=== PATIENT | female | born 1940 | race Caucasian/White ===

== ENCOUNTER → 2024-08-17 | Outpatient (CLI) | payer MEDICARE, BC, SELFPAY ==
[2024-08-17 17:11] LABS: Amphetamine/Methamp Scrn,U Negative (Negative); Barbiturate Screen,Urine Negative (Negative); Benzodiazepines Screen,Urine Positive (Negative); Benzoylecgonine Screen, Ur Negative (Negative); Fentanyl Screen,Urine Negative (Negative); Opiate Screen,Urine Positive (Negative); THC Screen,Urine Negative (Negative)
== END | disposition home or self-care (01) ==
LOC: SLDO 14:58
PROVIDERS: PCP Registered Nurse; Referring Provider Registered Nurse; Visit Provider Registered Nurse
DX: Z79.891 Long term (current) use of opiate analgesic (principal)
CPT/HCPCS: 80307

== ENCOUNTER → 2024-08-23 | Outpatient (CLI) | payer MEDICARE, BC, SELFPAY ==
[2024-08-23 11:17] LABS: Basophils # (Auto) 0.1 Thou/mm3 (0.0-0.2); Basophils % (Auto) 1 % (0-2.5); Eosinophils # (Auto) 0.2 Thou/mm3 (0.0-0.5); Eosinophils % (Auto) 3 % (0-10); Hemoglobin 11.7 g/dL (12.0-16.0); Immature Granulocytes % (Auto) 0 % (0-0); Immature Granulocytes Auto 0.01 Thou/mm3 (0.00-0.00); Lymphocytes # (Auto) 2.3 Thou/mm3 (1.0-4.8); Lymphocytes % (Auto) 35 % (10-50); Mean Corpuscular HGB Conc 33.4 g/dl (31.0-37.0); Mean Corpuscular Hemoglobin 33.6 pg (25.0-35.0); Mean Corpuscular Volume 101 fL (80-100); Monocytes # (Auto) 0.4 Thou/mm3 (0.0-0.8); Monocytes % (Auto) 6 % (0-12); Neutrophils # (Auto) 3.6 Thou/mm3 (1.8-7.7); Neutrophils % (Auto) 55 % (37-80); Nucleated Red Blood Cell % 0 /100 WBC (0); Platelet Count 355 Thou/mm3 (140-440); RDW Standard Deviation 47.8 fL (36.4-46.3); Red Blood Count 3.48 Miln/mm3 (4.00-5.20); White Blood Count 6.7 Thou/mm3 (3.6-11.0)
[2024-08-23 11:39] LABS: Vitamin B12 401 pg/mL (211-911)
[2024-08-23 11:42] LABS: Alanine Aminotransferase 7 U/L (10-49); Albumin, Serum 4.1 gm/dL (3.4-4.8); Albumin/Globulin Ratio 1.5 (1.2-2.2); Alkaline Phosphatase 62 U/L (46-116); Anion Gap 5 (7-16); Aspartate Amino Transferase 12 U/L (0-34); BUN/Creatinine Ratio 19 Ratio (12-20); Bilirubin,Total 0.3 mg/dL (0.3-1.2); Blood Urea Nitrogen 13 mg/dL (9-23); Calcium 9.3 mg/dL (8.3-10.6); Calcium (Corrected) 9.3 mg/dL (8.5-10.1); Carbon Dioxide 26.5 mMol/L (20.0-31.0); Cardiac Risk Estimate 2.4 RATIO (3.7-5.6); Chloride 104 mMol/L (98-107); Cholesterol 210 mg/dL (132-200); Creatinine (Component) 0.7 mg/dL (0.6-1.3); Free T4 (Free Thyroxine) 1.11 ng/dL (0.89-1.76); Globulin 2.8 gm/dL (2.3-3.5); Glucose 97 mg/dL (74-106); HDL Cholesterol 87 mg/dL (40-60); LDL Cholesterol,Calculated 92 mg/dL (0-130); Osmolality,Calculated 270 (275-295); Potassium 4.2 mMol/L (3.4-5.1); Sodium 135 mMol/L (136-145); Thyroid Stimulating Hormone 0.27 uIU/mL (0.55-4.78); Total Protein 6.9 gm/dL (5.7-8.2); Triglycerides 157 mg/dL (30-150); eGFR > 60 See Note
== END | disposition home or self-care (01) ==
LOC: COPL 09:48
PROVIDERS: PCP Family Medicine; Referring Provider Registered Nurse; Visit Provider Registered Nurse
DX: I10 Essential (primary) hypertension (principal); E03.9 Hypothyroidism, unspecified; J44.9 Chronic obstructive pulmonary disease, unspecified; R79.89 Other specified abnormal findings of blood chemistry
CPT/HCPCS: 36415; 80053; 80061; 81001; 82607; 84439; 84443; 85025

== ENCOUNTER 2025-03-23 13:43 | Inpatient (IN) | payer MEDICARE, BC, SELFPAY ==
[2025-03-23] VITALS (10 sets, daily range): BP systolic 134–150; BP diastolic 46–78; PULSE 66–82; RESP 12–20; TEMP 36.3–37.9; O2SAT 94–100; BMI 13.6
--- NOTE | 2025-03-23 13:58 | XR_ITS ---
Examination: CT brain head without contrast. 2-D sagittal coronal reconstructions Date and time of exam:March 23, 2025 1416 hours INDICATIONS: Altered mental status beginning today CTDI: vol (mGy):43.7 DLP: (mGycm):895 Technique: Multiple CT axial sections of the brain have been obtained, 5 mm slice thickness. Contrast has not been administered. 2-D sagittal, coronal reconstructions have been obtained Low dose protocols were performed. One or more of the following dose reduction techniques were used; automated exposure control, adjustment of the mA and/or KV according to patient size, use of iterative reconstruction technique. Findings: No significant ventricular enlargement. Intra-axial or extra-axial hemorrhage density is not seen. No mass effect or midline shift Basal cisterns are not remarkable. Fourth ventricle is midline. Cranial vault intact. Benign left temporal lobe tip subarachnoid cyst Impression: Negative for acute hemorrhage, mass effect or midline shift Advise clinical correlation and follow-up accordingly
--- NOTE | 2025-03-23 13:58 | EKG_ITS ---
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
[2025-03-23] MEDS: SODIUM CHLORIDE 0.9% 1000 ML 1,000 ML IV (14:05)
[2025-03-23 14:13] LABS: Collection Type, Urine Catheter
[2025-03-23 14:31] LABS: Bacteria,Urine 1+; Bilirubin,Urine Negative (Negative); Blood,Urine 2+ (Negative); Color,Urine Lt-Yellow (Lt Yel-Yel); Glucose, Urine Negative (Negative); Ketones,Urine 1+ (Negative); Leukocyte Esterase,Urine Negative (Negative); Nitrite,Urine Positive (Negative); PH,Urine 5.5 (5.0-7.0); Protein,Urine Negative (Neg - Trace); RBC,Urine 1 /hpf (0-3); Specific Gravity,Urine 1.012 (1.001-1.035); Squamous Epithelial Cell,Urine < 1 /hpf (0-5); Urobilinogen,Urine Negative mg/dL (0.0-1.0); WBC,Urine 5 /hpf (0-5)
[2025-03-23] MEDS: cefTRIAXone 2 GM in SODIUM CHLORIDE 0.9% (Popper) 50 ML IV (14:44)
[2025-03-23 14:45] LABS: Lactate (Lactic Acid) 0.8 mMol/L (0.4-2.0)
[2025-03-23 14:46] LABS: Basophils # (Auto) 0.0 Thou/mm3 (0.0-0.2); Basophils % (Auto) 0 % (0-2.5); Eosinophils # (Auto) 0.0 Thou/mm3 (0.0-0.5); Eosinophils % (Auto) 0 % (0-10); Hematocrit 35.1 % (36.0-46.0); Hemoglobin 12.0 g/dL (12.0-16.0); Immature Granulocytes Auto 0.10 Thou/mm3 (0.00-0.00); Lymphocytes # (Auto) 0.7 Thou/mm3 (1.0-4.8); Lymphocytes % (Auto) 4 % (10-50); Mean Corpuscular HGB Conc 34.2 g/dl (31.0-37.0); Mean Corpuscular Hemoglobin 33.5 pg (25.0-35.0); Mean Corpuscular Volume 98 fL (80-100); Monocytes # (Auto) 0.7 Thou/mm3 (0.0-0.8); Monocytes % (Auto) 4 % (0-12); Neutrophils # (Auto) 16.0 Thou/mm3 (1.8-7.7); Neutrophils % (Auto) 91 % (37-80); Nucleated Red Blood Cell # 0.00 Thou/mm3 (0.00-0.00); Nucleated Red Blood Cell % 0 /100 WBC (0); Platelet Count 224 Thou/mm3 (140-440); RDW Standard Deviation 45.2 fL (36.4-46.3); Red Blood Count 3.58 Miln/mm3 (4.00-5.20); White Blood Count 17.5 Thou/mm3 (3.6-11.0)
[2025-03-23 14:46] LABS: Base Excess -2 (-3-3); HCO3 22 mEq/L (20-26); Inspired O2, VO2 Liters 2 L/min; O2 Saturation 99 % (91-98); PCO2 33 mmHg (32.0-48.0); PO2 98 mmHg (83-108); pH, Arterial 7.43 (7.35-7.45)
[2025-03-23 14:48] LABS: Allen Test Performed/OK; Puncture Site Right Radial
[2025-03-23 14:48] LABS: Clarity,Urine Hazy (Clear/Hazy); Culture Indicated,Urine Yes
[2025-03-23 14:54] LABS: Amphetamine/Methamp Scrn,U Negative (Negative); Barbiturate Screen,Urine Negative (Negative); Benzodiazepines Screen,Urine Positive (Negative); Benzoylecgonine Screen, Ur Negative (Negative); Fentanyl Screen,Urine Negative (Negative); Opiate Screen,Urine Positive (Negative); THC Screen,Urine Negative (Negative)
[2025-03-23 14:59] LABS: INR 0.9 (0.9-1.3); Prothrombin Time 10.3 Seconds (9.0-12.2)
[2025-03-23 15:13] LABS: Ammonia < 10 uMol/L (11-32)
--- NOTE | 2025-03-23 15:20 | PD.EDAMS ---
Altered Mental Status RME/HPI General Chief Complaint: Altered Mental Status Stated Complaint: ALTERED Time Seen by Provider: 03/23/25 13:51 Arrival date/time: 03/23/25 13:43 Limitations: no limitations RME / HPI RME / HPI narrative: 84 year old female with history of hypertension presents to the ED BIBA from home for evaluation of altered mental status beginning yesterday. Per medics, on scene described to be less alert than normal accompanied by decreased oral intake. In the ED, patient has no specific complaints. There is no focal weakness and the patient answers questions appropriately. No recent illness, fevers, chills, chest pain, cough, shortness of breath, abdominal pain, vomiting, change in stool or urinary habits. Related Data Home Medications ?Medication ?Instructions ?Recorded ?Confirmed amlodipine 10 mg tablet 10 mg PO QDAY 03/23/25 03/23/25 conjugated estrogens 0.625 mg 0.625 mg PO QDAY 03/23/25 03/23/25 tablet (Premarin) diazepam 10 mg tablet 10 mg PO QDAY 03/23/25 03/23/25 hydrocodone 10 mg-acetaminophen 1 tab PO TID PRN back pain 03/23/25 03/23/25 325 mg tablet thyroid (pork) 60 mg tablet 60 mg PO QDAY 03/23/25 03/23/25 ([place] Thyroid) Previous Rx's ?Medication ?Instructions ?Recorded lisinopril 20 mg tablet 20 mg PO QDAY #30 tabs 10/31/16 Allergies Allergy/AdvReac Type Severity Reaction Status Date / Time aspirin Allergy Intermediate GI UPSET Verified 03/23/25 22:46 Review of Systems Review of Systems Systems Reviewed: All systems reviewed, normal except as documented Past Medical History Past Medical History CARDIAC: Positive Hypertension; Negative Congestive Heart Failure RESPIRATORY: Positive Chronic Obstructive Pulmonary Disease (COPD) GENITOURINARY: Negative Renal Disease ENDOCRINE: Negative Diabetes Mellitus Type 1 or Diabetes Mellitus Type 2 Social History SMOKING STATUS: Current every day smoker ED Exam General Limitations: Present no limitations General appearance: Present alert and other (frail and thin, oriented x2, chronically ill appearing) Head Head exam: Present atraumatic Eye Eye exam: Present normal appearance, PERRL and EOMI ENT ENT exam: Present normal exam, normal oropharynx and mucous membranes moist Neck Neck exam: Present normal inspection, full ROM and trachea midline Chest Chest inspection: Present normal inspection and symmetric chest wall rise Respiratory Respiratory exam: Present normal lung sounds bilaterally Cardiovascular Cardiovascular exam: Present regular rate, normal rhythm and normal heart sounds Abdominal Exam Abdominal exam: Present soft and hypoactive bowel sounds; Absent distention, tenderness, guarding, rebound, rigidity or mass External exam: Present other (Smells of strong urine consistent with UTI) Extremities Exam Extremities exam: Present normal inspection and full ROM Back Exam Back exam: Present normal inspection and full ROM Neurological Exam Neurological exam: Present alert, CN II-XII intact and other (Oriented x2, 4+/5 strength of the upper and lower extremities, generalized weakness ) Psychiatric Psychiatric exam: Present normal affect and normal mood Skin Skin exam: Present warm, dry, intact and normal color Course Quality Measures none Orders Category Date Time Status Bedside Blood Glucose NOW Care 03/23/25 13:58 Active Bedside COVID-19 Antigen Test NOW Care 03/23/25 18:56 Active Bedside Influenza A&B Antigen Test NOW Care 03/23/25 18:56 Completed COVID-19 Screening Questionnaire NOW Care 03/23/25 19:39 Active COVID-19 Screening Questionnaire NOW Care 03/23/25 20:[address] Screening NOW Care 03/23/25 17:37 Active Greeting Card Maker NOW Care 03/23/25 13:58 Active Continuous Pulse Oximetry NOW Care 03/23/25 13:58 Completed Decision to Admit X1 Care 03/23/25 19:39 Completed Decision to Admit X1 Care 03/23/25 20:54 Completed EKG (ED ONLY) *Do not use* NOW Care 03/23/25 13:58 Completed In and Out Catheter X1 Care 03/23/25 13:58 Completed In and Out Catheter X1 Care 03/23/25 14:00 Completed Insert IV NOW Care 03/23/25 13:58 Completed NPO NOW Care 03/23/25 13:58 Active Referral Physical Therapy Stat Cons 03/23/25 20:[address] abdomen pelvis w con Stat Exams 03/23/25 17:[address] chest wo con Stat Exams 03/23/25 17:[address] head/brain wo con Stat Exams 03/23/25 13:58 Completed CXRP [XR chest 1V portable] Stat Exams 03/23/25 15:58 Completed EKG (ED Only) Stat Exams 03/23/25 13:58 Draft XR shoulder RT 1V Stat Exams 03/23/25 20:54 Completed Acetaminophen Stat Lab 03/23/25 14:35 Completed Alcohol, Blood Medical Stat Lab 03/23/25 14:35 Completed Ammonia Stat Lab 03/23/25 14:35 Completed Arterial Blood Gas Stat Lab 03/23/25 14:41 Completed Blood Culture (Lab) Stat Lab 03/23/25 14:40 Received CBC Stat Lab 03/23/25 14:35 Completed Comprehensive Metabolic Panel Stat Lab 03/23/25 14:35 Completed Drug Screen,Urine Stat Lab 03/23/25 11:09 Completed Free T3 Stat Lab 03/23/25 14:40 Completed Free T4 (Free Thyroxine) Stat Lab 03/23/25 14:40 Completed Lactic Acid [Lactate (Lactic Acid)] Stat Lab 03/23/25 14:35 Completed Magnesium Stat Lab 03/23/25 14:35 Completed Prothrombin Time with INR Stat Lab 03/23/25 14:35 Completed Salicylate Stat Lab 03/23/25 14:35 Completed Thyroid Stimulating Hormone Stat Lab 03/23/25 14:35 Completed Troponin I Stat Lab 03/23/25 14:35 Completed Urinalysis, C/S if Indicated Stat Lab 03/23/25 11:09 Completed Urine Culture Stat Lab 03/23/25 11:09 Received Azithromycin Inj [Zithromax Inj] 500 mg Med 03/23/25 18:55 Discontinued Sodium Chloride 0.9% 250 ml [Ns] 250 ml IV X1 Ringers Lactated 1000 ml [Lactated Ringers] 1,000 ml Med 03/23/25 18:57 Discontinued IV 500 mls/hr Sodium Chloride 0.9% 1000 ml [Ns] 1,000 ml Med 03/23/25 13:58 Discontinued IV 1,000 mls/hr cefTRIAXone [Rocephin] 2 gm Med 03/23/25 14:01 Discontinued SODIUM CHLORIDE 0.9% (Popper) [Ns 0.9% (P)] 50 ml IV X1 Oxygen Delivery NOW RT 03/23/25 13:58 Active Vital Signs Vital signs: Vital Signs Temperature 99.4 F 03/23/25 13:50 Pulse Rate 79 03/23/25 13:50 Respiratory Rate 16 03/23/25 13:50 Blood Pressure 134/78 H 03/23/25 13:50 Pulse Oximetry (%) 99 03/23/25 13:50 Oxygen Delivery Method Room Air 03/23/25 13:50 Pulse ox is 99% on room air which is adequate. Altered Mental Status MDM Narrative MDM Narrative:: IShanice, glendy scribing for and in the presence of Dr. Harris. I spoke with hospitalist team C regarding admission. They are requesting CT abdomen and pelvis w contrast prior to accepting for admission. 1800: Care signed out to Dr. Mitchell pending CT and final disposition. Patient data External records reviewed:: EMS form Clinical information provided by:: patient, EMS and spouse Social determinants that could affect healthcare access:: none Patient has the following chronic illnesses:: HTN How is presenting disease/condition affected by chronic disease/condition?: exacerbated by Evaluation data The following diagnostics were reviewed and interpreted by me:: lab results, radiology exam(s) and EKG tracing(s) (03/23/2025 @ 14:31 NSR with occasional PVCs, rate 72, no acute ischemic changes, no STEMI. ) Lab and/or radiology exams considered but not ordered:: None Interpretation Summary: Ordering Physician: Darion Harris MD Date of Service: 03/23/25 Procedure(s): CT head/brain wo con Accession Number(s): [id number] cc: Darion Harris MD; Dc Villegas MD; Jenni Gallardo MD~ Examination: CT brain head without contrast. 2-D sagittal coronal reconstructions Date and time of exam:March 23, 2025 1416 hours INDICATIONS: Altered mental status beginning today CTDI: vol (mGy):43.7 DLP: (mGycm):895 Technique: Multiple CT axial sections of the brain have been obtained, 5 mm slice thickness. Contrast has not been administered. 2-D sagittal, coronal reconstructions have been obtained Low dose protocols were performed. One or more of the following dose reduction techniques were used; automated exposure control, adjustment of the mA and/or KV according to patient size, use of iterative reconstruction technique. Findings: No significant ventricular enlargement. Intra-axial or extra-axial hemorrhage density is not seen. No mass effect or midline shift Basal cisterns are not remarkable. Fourth ventricle is midline. Cranial vault intact. Benign left temporal lobe tip subarachnoid cyst Impression: Negative for acute hemorrhage, mass effect or midline shift Advise clinical correlation and follow-up accordingly Dictated By: Dc Villegas MD Signed By: <Electronically signed by Dc Villegas MD in OV> 03/23/25 1502 Medications / Prescriptions Medications or Prescriptions considered but not ordered:: None Medication administrations:: Medication Administration History Acetaminophen (Acetaminophen 325 Mg Tablet) 650 mg PO Q6H PRN PRN Reason: PAIN SCALE 1-3 (mild Stop: 04/22/25 20:54 Acetaminophen (Acetaminophen 325 Mg Tablet) 650 mg PO Q6H PRN PRN Reason: Fever >100.4 Stop: 04/22/25 20:54 Hydrocodone Bitart/Acetaminophen (Hydrocodone/Apap 325 Tab) 1 tab PO Q4HR PRN PRN Reason: PAIN SCALE 7-10 (Severe Stop: 03/28/25 20:54 Last Admin: 03/23/25 23:03 Dose: 1 tab Documented By: BREANNE Albuterol/Ipratropium (Albuterol/Ipratropium (Duoneb) Rt Pearl 3 Ml Nebu) 3 ml INH Q6HRRT PRN PRN Reason: Wheezing Stop: 04/22/25 20:54 Amlodipine Besylate (Amlodipine Besylate 5 Mg Tablet) 10 mg PO QDAY BRENDA Stop: 04/23/25 08:59 Diazepam (Diazepam 5 Mg Tablet) 10 mg PO DAILY BRENDA Stop: 03/29/25 08:59 Heparin Sodium (Porcine) (Heparin Sod Inj 5000 Unit/Ml Vial) 5,000 unit SC BID BRENDA Stop: 04/06/25 20:59 Last Admin: 03/23/25 23:02 Dose: 5,000 unit Documented By: BREANNE Co-signed By: DENISE Ceftriaxone Sodium/Dextrose (Rocephin/D5w 1gm Iv Premix) 1 gm in 50 mls @ 100 mls/hr IV QDAY BRENDA Stop: 03/31/25 08:59 Azithromycin 250 mg/ Sodium (Chloride) 250 mls @ 250 mls/hr IV QDAY BRENDA Stop: 04/01/25 08:59 Sodium Chloride (Ns) 1,000 mls @ 30 mls/hr IV .Q24H BRENDA Stop: 04/22/25 20:59 Last Admin: 03/23/25 23:03 Dose: 30 mls/hr Documented By: BREANNE Multivitamins (Multivitamins Tablet) 1 tab PO QDAY BRENDA Stop: 04/23/25 08:59 Ondansetron HCl (Ondansetron Inj 2 Mg/Ml Inj 2 Ml) 4 mg IVP Q6H PRN; Protocol PRN Reason: NAUSEA OR VOMITING Stop: 04/22/25 20:54 Oxycodone/Acetaminophen (Oxycodone/Apap 5/325 Tablet) 1 tab PO Q6H PRN PRN Reason: PAIN SCALE 4-6 (Moderate Stop: 03/28/25 20:54 Pantoprazole Sodium (Pantoprazole Inj 40 Mg Vial) 40 mg IVP QDAY [facility] Stop: 04/22/25 20:59 Last Admin: 03/23/25 23:02 Dose: 40 mg Documented By: BREANNE Thiamine HCl (Thiamine 100 Mg Tablet) 100 mg PO QDAY [facility] Stop: 04/23/25 08:59 Thyroid (Thyroid 30 Mg Tablet) 60 mg PO QDAY [facility] Stop: 04/23/25 08:59 Discontinued Medications Amlodipine Besylate (Amlodipine Besylate 5 Mg Tablet) 5 mg PO X1 ONE Stop: 03/23/25 21:03 Last Admin: 03/23/25 23:03 Dose: 5 mg Documented By: BREANNE Sodium Chloride (Ns) 1,000 mls @ 1,000 mls/hr IV .Q1H ONE Stop: 03/23/25 14:57 Last Infusion: 03/23/25 17:00 Dose: Infused Documented By: Admin: 03/23/25 14:05 Dose: 1,000 mls/hr Documented By: REINA Ceftriaxone Sodium 2 gm/ (Sodium Chloride) 50 mls @ 100 mls/hr IV X1 ONE Stop: 03/23/25 14:30 Last Infusion: 03/23/25 15:14 Dose: Infused Documented By: Admin: 03/23/25 14:44 Dose: 100 mls/hr Documented By: REINA Azithromycin 500 mg/ Sodium (Chloride) 250 mls @ 250 mls/hr IV X1 ONE Stop: 03/23/25 19:54 Last Infusion: 03/23/25 20:36 Dose: Infused Documented By: Admin: 03/23/25 19:07 Dose: 250 mls/hr Documented By: GISELLA Lactated Ringer's (Lactated Ringers) 1,000 mls @ 500 mls/hr IV .Q2H ONE Stop: 09/04/25 20:56 Last Infusion: 03/23/25 21:48 Dose: Infused Documented By: Admin: 03/23/25 19:08 Dose: 500 mls/hr Documented By: GISELLA See above Consultations Consultation(s) initiated? (list below): No Diagnosis Most likely diagnosis given after review of the tests above:: Altered mental status Admission Indicated Admission indicated?: not indicated Explain why admission is indicated or not indicated:: Signed out pending final disposition. Admission Request Was there a request for admission?: No Disposition Plan Disposition Plan: other (specify) (Signed out to Dr. Mitchell ) Critical Care Time Critical Care Time Critical Care Time: No Discharge Plan Plan Patient Disposition: Admit Acute Care w/in Hospital Problem List Clinical Impression: AMS (altered mental status), Dehydration, UTI (urinary tract infection), Pneumonia
[2025-03-23 15:33] LABS: Acetaminophen < 2.0 mcg/mL (10.0-20.0); Alanine Aminotransferase 7 U/L (10-49); Albumin, Serum 3.9 gm/dL (3.4-4.8); Albumin/Globulin Ratio 1.7 (1.2-2.2); Alcohol, Blood Medical < 3.0 mg/dL (0-10.0); Alkaline Phosphatase 55 U/L (46-116); Anion Gap 12 (7-16); Aspartate Amino Transferase 14 U/L (0-34); BUN/Creatinine Ratio 11 Ratio (12-20); Bilirubin,Total 0.4 mg/dL (0.3-1.2); Blood Urea Nitrogen 8 mg/dL (9-23); Calcium 9.3 mg/dL (8.3-10.6); Calcium (Corrected) 9.4 mg/dL (8.5-10.1); Carbon Dioxide 22.3 mMol/L (20.0-31.0); Chloride 104 mMol/L (98-107); Creatinine (Component) 0.7 mg/dL (0.6-1.3); Globulin 2.3 gm/dL (2.3-3.5); Glucose 119 mg/dL (74-106); Magnesium 1.6 mg/dL (1.6-2.6); Osmolality,Calculated 274 (275-295); Potassium 3.6 mMol/L (3.4-5.1); Salicylate < 3.0 mg/dL; Sodium 138 mMol/L (136-145); Thyroid Stimulating Hormone 0.12 uIU/mL (0.55-4.78); Total Protein 6.2 gm/dL (5.7-8.2); Troponin I < 0.020 ng/mL (0.0-0.045); eGFR > 60 See Note
--- NOTE | 2025-03-23 15:58 | XR_ITS ---
Examination: AP chest single view Technique: AP portable upright chest single view Date and time: March 23, 2025, 1623 hrs., Comparison June 01, 2023. Indications: Coughing chest pain beginning today. Findings: Moderate hyperexpansion. Early pneumonia both bases. Normal heart size. Impression: COPD Early pneumonia both bases
--- NOTE | 2025-03-23 17:36 | XR_ITS ---
Examination: CT abdomen with intravenous contrast CT pelvis with intravenous contrast 2-D coronal reconstructions 2-D sagittal reconstructions Date and time of exam:March 23, 2025, 1841 hrs. Indications: Abdominal pain fever generalized weakness today. CTDI: vol (mGy) 3.76 DLP: (mGycm) 186 Technique: Multiple axial sections of the abdomen and pelvis have been obtained. 64 slice high-resolution scanner used. 3 mm axial sections have been obtained, post intravenous injection 60 cc [id number] 2-D sagittal, coronal reconstructions obtained. Low dose protocols were performed. One or more of the following dose reduction techniques were used; automated exposure control, adjustment of the mA and/or KV according to patient size, use of iterative reconstruction technique. Findings: Please see the CT chest report 19 mm enhancing lesion upper right lobe the liver, axial image 24 Hepatomegaly 18 cm No biliary tract dilatation. Spleen is not enlarged No pancreatic mass No gallstones Heavy abdominal aortic calcification No renal or ureteral calculi, no hydronephrosis Left kidney extrarenal pelvis No bowel obstruction. Colonic diverticulosis, no diverticulitis Urinary bladder intact No pericecal inflammatory change. Advanced degenerative disc disease L4-L5 Impression: Hepatomegaly, 18 cm 19 mm enhancing lesion upper right lobe liver, recommend elective MRI abdomen liver follow-up pre and postcontrast No renal or ureteral calculi. Colonic diverticulosis, no diverticulitis Advanced degenerative disc disease L4-L5.
--- NOTE | 2025-03-23 17:37 | XR_ITS ---
Examination: CT chest, without intravenous contrast. Sagittal and coronal 2-D reconstructions. Exam date and time: March 23, 2025, 1838 hrs. Indications: Chest pain shortness of breath fever coughing today CTDI:vol (mGy) 4.78 DLP: (mGycm) 173. Technique: Multiple 3.0 mm axial sections of the chest to been obtained. Bone and lung density settings are obtained. Sagittal and coronal 2-D reconstructions have been obtained. Low dose protocols were performed. One or more of the following dose reduction techniques were used; automated exposure control, adjustment of the mA and/or KV according to patient size, use of iterative reconstruction technique. Findings: Heavy thoracic aortic calcification no thoracic aortic aneurysmal dilatation. Pulmonary artery segments are not enlarged. Significant hyperexpansion. No paratracheal tracheobronchial or bronchopulmonary adenopathy. COPD with multiple areas of airspace destruction Extensive probable pleural scarring at the right apex. Prominent central pulmonary arteries especially right pulmonary artery Pneumonia at both lung bases 4 mm pulmonary nodule right lower lobe No visualized liver or splenic lesion Kidneys partially visualized no hydronephrosis No pancreatic mass. Prominent osteopenia with moderate chronic osteoporotic compression T9 Impression: COPD with prominent hyperexpansion Significant probable scarring at the right apex, follow-up chest imaging in 3 months recommended. Pneumonia both bases. 4 mm pulmonary nodule right lower lobe Severe osteopenia with moderate chronic compressions T9 vertebral body
--- NOTE | 2025-03-23 18:19 | PD.RESEVENT ---
Documentation for date of: 03/23/25 Event Note Event Note: IM hospitalist team received call from ED attending Dr. Doty at 5:45 PM regarding admission for leukocytosis in the setting of severe malnutrition and failure to thrive. Patient's urinalysis was fairly unremarkable and chest x-ray showed a hyperinflated COPD picture, relatively clear. No signs of consolidation. Given no obvious source of leukocytosis, IM hospitalist team has requested ED for a CT abdomen pelvis for further evaluation. ED to call back for admission when CT abdomen pelvis becomes available. Will re-evaluate. Plan of care discussed with attending Dr Stringer, - Santos Villarreal M.D. PGY3
--- NOTE | 2025-03-23 18:23 | PD.EDADDENDU ---
Emergency Room Addendum <Muna Chow - Last Filed: 03/23/25 20:17> Addendum Narrative: I took over the care from Dr. Harris at 6 PM on 03/23/2025, see his notes for complete H&P and ED course. I reviewed all diagnostic test results. My review of the CT chest report is: - COPD with prominent hyperexpansion - Significant probable scarring at the right apex - Pneumonia both bases. - 4 mm pulmonary nodule right lower lobe - Severe osteopenia with moderate chronic compressions T9 vertebral body My review of the CT abdomen pelvis report is: - Hepatomegaly, 18 cm - 19 mm enhancing lesion upper right lobe liver - Colonic diverticulosis, no diverticulitis - Advanced degenerative disc disease L4-L5 At this point, diagnoses include: - AMS - Dehydration - UTI - Pneumonia Treatment here from me included: - Azithromycin I discussed the case with our hospitalist. About the presentation and exam and diagnostics and treatments here. And need of further care in the hospital. Will accept the patient. Zhang Mitchell MD <Zhang Mitchell MD - Last Filed: 03/26/25 09:41> Addendum Narrative: I took over the care from Dr. Harris at 6 PM on 03/23/2025, see his notes for complete H&P and ED course. At this point, diagnoses include: - AMS - Dehydration - UTI - Pneumonia I discussed the case with our hospitalist. About the presentation and exam and diagnostics and treatments here. And need of further care in the hospital. Will accept the patient. Zhang Mitchell MD
[2025-03-23] MEDS: AZITHROMYCIN INJ 500 MG in SODIUM CHLORIDE 0.9% 250 ML 250 ML 250 MG IV (19:07)
[2025-03-23] MEDS: RINGERS LACTATED 1000 ML 1,000 ML 500 ML IV (19:08)
[2025-03-23 19:56] LABS: Free T3 2.2 pg/mL (2.3-4.2); Free T4 (Free Thyroxine) 0.98 ng/dL (0.89-1.76)
--- NOTE | 2025-03-23 20:54 | XR_ITS ---
Examination: Right shoulder single view Technique one AP internal rotation left shoulder single view Date and time: March 23, 2025, 2127 hrs. Indications: Right shoulder pain today. Findings: Limited study. Obliteration of the space between the acromium and humeral head seen with full-thickness rotator cuff tear. No fracture Impression: Obliteration of the space between the acromium and humeral head seen with full-thickness rotator cuff tear.
--- NOTE | 2025-03-23 21:04 | ESHP_ITS ---
Documentation for date of: 03/23/25 [facility] History of Present Illness History of present illness: This is a 84-year-old female with PMHx of hypothyroidism, HTN, COPD, chronic back pain, presenting to the ED with acute altered mental status. Currently she resides with her son who is a bedside during encounter. On the morning of admission, she was found lying in bed, with her legs extended on wheelchair. Granddaughter noted that she was slightly confused, difficult to arouse, and not making sense when he she asked questions. Patient herself denies any changes in mentation, she is alert oriented x 3 at the time of the encounter, denied any current complaints other than chronic back pain. Denies headaches, fever, chills, fall or trauma, syncope or presyncope, chest pain, shortness of breath, palpitations, abdominal pain, N/V/D/C, dysuria, urinary urgency or frequency, or hematuria. Per son, she had been losing weight gradually over the last several weeks, more than 4 lbs, although there is no reported loss of appetite. Additionally, she complained of right arm pain, unable to lift her arm secondary to pain which is also chronic. Past Medical History: * Hypothyroidism, HTN, COPD, chronic back pain. Past Surgical History: * None. Medications: * PREMARIN 0.625 mg daily, NORCO as needed for pain, DIAZEPAM 10 mg daily PRN for leg pain, ARMOUR THYROID 60 mg daily, AMLODIPINE 10 mg daily. Allergies: * ASPIRIN, GI upset. Family History: * None relevant. Social History: * Chronic smoker, more than [id number]. Occasional alcohol drink. Denies drug or marijuana use. ED Course: * Afebrile, HR 79, BP 134/78, satting 96% on room air. * CBC showed WBC 17.5, Hgb 12.0, PLT 224. * Normal coag studies. * ABG was normal with pH 7.43, pCO2 33, bicarb 22, PaO2 98. * CHEM panel remarkable for TSH 0.12, free T4.98. * UA showed 1+ bacteria, positive nitrite, 2+ blood, 1+ KETONE. * U tox positive for opiate and benzo. * EKG shows sinus rhythm without acute ST changes. * Head CT was negative for acute pathology. * CXR showed COPD and early pneumonia of both bases. * CT abdomen showed hepatomegaly, colonic diverticulosis without diverticulitis, advanced degenerative disc disease at L4-L5, 90 mm enhancing lesion in the upper right liver lobe. * CT chest showed COPD with prominent hyperexpansion, bibasilar pneumonia, 4 mm nodule of the right lower lobe, severe osteopenia with moderate chronic compression of T3 vertebral body. * Right shoulder x-ray showed rotator cuff tear. Reason for admission: Acute encephalopathy likely in settings of pneumonia. Exam Vital Signs Temp Pulse Resp BP Pulse Ox O2 Del Method O2 Flow Rate 100.3 F 77 12 145/46 H 96 Room Air 2 03/23/25 21:00 03/23/25 21:00 03/23/25 21:00 03/23/25 21:00 03/23/25 21:00 03/23/25 21:00 03/23/25 19:19 Narrative Exam GENERAL * Frail, elderly lady, NAD, satting well on room air. HEENT * NCAT.?RINKU. Oral mucosa is moist. Patent Nares NECK * Supple, nontender, no JVD. CHEST * RRR, no m/g/r * CTAB, no w/r/r, symmetrical expansion. ABDOMEN * Soft, flat, nontender. No guarding/rebound tenderness/masses. * Bowel sounds presents EXTREMITIES * No edema/cyanosis.? SKIN * Warm and dry, no jaundice/rashes. NEUROMUSCULAR * No lumbar or midline, no CVA, no paraspinal muscle spasm or tenderness. * Moves all 4 extremities well, with full ROM and good CSM. * STANLEY x4, CN II-XII grossly intact. * No focal neurologic deficits. PSYCHIATRY * Normal mood and affect, cooperative, no SI or HI or hallucinations. Results: Labs 03/23/25 14:35 03/23/25 14:35 Labs: Short CBC 03/23/25 Range/Units 14:35 WBC 17.5 H (3.6-11.0) Thou/mm3 Hgb 12.0 (12.0-16.0) g/dL Hct 35.1 L (36.0-46.0) % Plt Count 224 (140-440) Thou/mm3 BMP 03/23/25 14:35 Sodium 138 Potassium 3.6 Chloride 104 Carbon Dioxide 22.3 BUN 8 L Creatinine 0.7 Glucose 119 H Calcium 9.3 Cardiac Enzymes 03/23/25 Range/Units 14:35 Troponin I < 0.020 (0.0-0.045) ng/mL Liver Function 03/23/25 Range/Units 14:35 Total Bilirubin 0.4 (0.3-1.2) mg/dL AST 14 (0-34) U/L ALT 7 L (10-49) U/L Alkaline Phosphatase 55 (46-116) U/L Albumin 3.9 (3.4-4.8) gm/dL Urine 03/23/25 Range/Units 11:09 Urine Color Lt-Yellow (Lt Yel-Yel) Urine Clarity Hazy (Clear/Hazy) Urine pH 5.5 (5.0-7.0) Ur Specific [place] 1.012 (1.001-1.035) Urine Protein Negative (Neg - Trace) Urine Glucose (UA) Negative (Negative) ABG Interpretation ABG results: 03/23/25 14:41 ABG pH 7.43 ABG pCO2 33 ABG pO2 98 ABG HCO3 22 ABG O2 Saturation 99 H ABG Base Excess -2 Quality Measures Quality Measures none Advance care planning discussed with:: patient Medications Home Medications and Allergies Home Medications ?Medication ?Instructions ?Recorded ?Confirmed ?Type amlodipine 10 mg tablet 10 mg PO QDAY 03/23/2503/23 History conjugated estrogens 0.625 mg 0.625 mg PO QDAY 5 03/23/25 History tablet (Premarin) diazepam 10 mg tablet 10 mg PO QDAY 03/23/2503/23 History hydrocodone 10 mg-acetaminophen 1 tab PO TID PRN back pain 03/23/25 03/23/25 History 325 mg tablet thyroid (pork) 60 mg tablet 60 mg PO QDAY 03/23/2511/11 History (Alma Thyroid) Allergies Allergy/AdvReac Type Severity Reaction Status Date / Time aspirin Allergy Intermediate GI UPSET Verified 03/23/25 22:46 Visit Medications Acetaminophen (Acetaminophen 325 Mg Tablet) 650 mg PO Q6H PRN PRN Reason: PAIN SCALE 1-3 (mild Stop: 04/22/25 20:54 Acetaminophen (Acetaminophen 325 Mg Tablet) 650 mg PO Q6H PRN PRN Reason: Fever >100.4 Stop: 04/22/25 20:54 Hydrocodone Bitart/Acetaminophen (Hydrocodone/Apap 10/325 Tab) 1 tab PO Q4HR PRN PRN Reason: PAIN SCALE 7-10 (Severe Stop: 03/28/25 20:54 Albuterol/Ipratropium (Albuterol/Ipratropium (Duoneb) Rt Pearl 3 Ml Nebu) 3 ml INH Q6HRRT PRN PRN Reason: Wheezing Stop: 04/22/25 20:54 Heparin Sodium (Porcine) (Heparin Sod Inj 5000 Unit/Ml Vial) 5,000 unit SC BID BRENDA Stop: 04/06/25 20:59 Ceftriaxone Sodium/Dextrose (Rocephin/D5w 1gm Iv Premix) 50 mls @ 100 mls/hr IV QDAY BRENDA Stop: 03/31/25 08:59 Azithromycin 250 mg/ Sodium (Chloride) 250 mls @ 250 mls/hr IV QDAY BRENDA Stop: 04/01/25 08:59 Sodium Chloride (Ns) 1,000 mls @ 30 mls/hr IV .Q24H BRENDA Stop: 04/22/25 20:59 Ondansetron HCl (Ondansetron Inj 2 Mg/Ml Inj 2 Ml) 4 mg IVP Q6H PRN; Protocol PRN Reason: NAUSEA OR VOMITING Stop: 04/22/25 20:54 Oxycodone/Acetaminophen (Oxycodone/Apap 5/325 Tablet) 1 tab PO Q6H PRN PRN Reason: PAIN SCALE 4-6 (Moderate Stop: 03/28/25 20:54 Pantoprazole Sodium (Pantoprazole Inj 40 Mg Vial) 40 mg IVP QDAY BRENDA Stop: 04/22/25 20:59 Discontinued Medications Sodium Chloride (Ns) 1,000 mls @ 1,000 mls/hr IV .Q1H ONE Stop: 03/23/25 14:57 Last Infusion: 03/23/25 17:00 Dose: Infused Ceftriaxone Sodium 2 gm/ (Sodium Chloride) 50 mls @ 100 mls/hr IV X1 ONE Stop: 03/23/25 14:30 Last Infusion: 03/23/25 15:14 Dose: Infused Azithromycin 500 mg/ Sodium (Chloride) 250 mls @ 250 mls/hr IV X1 ONE Stop: 03/23/25 19:54 Last Infusion: 03/23/25 20:36 Dose: Infused Lactated Ringer's (Lactated Ringers) 1,000 mls @ 500 mls/hr IV .Q2H ONE Stop: 03/23/25 20:56 Last Admin: 03/23/25 19:08 Dose: 500 mls/hr Assessment & Plan Plan This is a 84-year-old female with PMHx of hypothyroidism, HTN, COPD, chronic back pain, presenting to the ED with acute altered mental status. Acute Encephalopathy Community Acquired PNA, likely GNR UTI, likely GNR Presented with acute changes mental status started this morning. No focal neurological deficits subjectively or on exam. Head CT was negative for acute pathology. Symptoms most likely related to infection given leukocytosis and pneumonia as seen on imaging plus UTI based on UA. Currently afebrile, satting well on room air. She received a total of 2 L IV fluids. Mentation overall improving. ? Pending pancultures ? Started CEFTRIAXONE and AZITHROMYCIN ? Pending physical therapy Right rotator cuff tear Complains of chronic right arm pain, unable to lift her arm more than 30 degree secondary to pain. No bony deformity noted on exam, however exam was limited secondary to pain during active motion. Right shoulder x-ray showed rotator cuff tear. Currently we don't have orthopedic coverage. Ordered right arm sling, will continue with pain control, may be addressed outpatient. Chronic caloric malnutrition Underweight BMI of 14 BMI significantly low, appears cachectic on exam. Reports unintentional weight loss, about 4 lbs unintentional weight loss, about 4 lbs over the last 2 weeks. Although appetite seems to be normal. ? Started daily THIAMINE and multivitamins. ? Consult registered dietitian. ? Replete electrolytes as needed. COPD Diagnosed more than 10 years ago. Likely related to chronic cigarette smoking. Denies wheezing or shortness of breath. Low suspicion for COPD exacerbation ? DuoNebs PRN Hypothyroism HTN BP slightly elevated. Thyroid function within acceptable range. ? Continue home thyroid 60 mg daily ? Continue home AMLODIPINE 10 mg daily Muscle spasm Chronic lumbago ? Multimodal pain control Incidental finding 19 mm enhancing lesion in the upper right liver lobe seen on CT abdomen. 4 mm pulmonary nodule in the right lower lobe seen on CT chest. ? Recommended outpatient follow-up, repeat radiography in 6 months Health maintenance Diet: Regular diet GI prophylaxis: PROTONIX DVT prophylaxis: HEPARIN subcu Antibiotics: CEFTRIAXONE, AZITHROMYCIN CODE STATUS: DNR Disposition: Treating acute encephalopathy, caloric malnutrition, and rotator cuff tear Case was discussed with attending physician, Dr. Tucker. Zhane Higginbotham, DO PGY II This document was transcribed using voice recognition technology. Minor inaccuracies may be present. Attending Provider Attestation/Addendum After examination of the patient and review of the clinical data I feel that this patient needs admission to the hospital for further treatment/evaluation. I Cesar Tucker MD, attest that I was physically present for ponce portions of evaluation, and examined patient, labs and imagings and plan of care were discussed with IM residents team, and I agree with the findings and plans documented above.
[2025-03-23] MEDS: HEPARIN SOD INJ 5000 UNIT/ML VIAL SC (23:02)
[2025-03-23] MEDS: SODIUM CHLORIDE 0.9% 1000 ML 1,000 ML 30 ML IV (23:03)
[2025-03-24] VITALS (8 sets, daily range): BP systolic 112–144; BP diastolic 54–90; PULSE 64–97; RESP 16–95; TEMP 36.1–37.1; O2SAT 92–98; BMI 14.0; BMI 13.6
[2025-03-24 06:38] LABS: Basophils # (Auto) 0.0 Thou/mm3 (0.0-0.2); Basophils % (Auto) 0 % (0-2.5); Eosinophils # (Auto) 0.0 Thou/mm3 (0.0-0.5); Eosinophils % (Auto) 0 % (0-10); Hematocrit 35.6 % (36.0-46.0); Hemoglobin 11.9 g/dL (12.0-16.0); Immature Granulocytes Auto 0.03 Thou/mm3 (0.00-0.00); Lymphocytes # (Auto) 0.8 Thou/mm3 (1.0-4.8); Lymphocytes % (Auto) 9 % (10-50); Mean Corpuscular HGB Conc 33.4 g/dl (31.0-37.0); Mean Corpuscular Hemoglobin 34.2 pg (25.0-35.0); Mean Corpuscular Volume 102 fL (80-100); Monocytes # (Auto) 0.4 Thou/mm3 (0.0-0.8); Monocytes % (Auto) 5 % (0-12); Neutrophils # (Auto) 7.6 Thou/mm3 (1.8-7.7); Neutrophils % (Auto) 86 % (37-80); Nucleated Red Blood Cell # 0.00 Thou/mm3 (0.00-0.00); Nucleated Red Blood Cell % 0 /100 WBC (0); Platelet Count 202 Thou/mm3 (140-440); RDW Standard Deviation 47.7 fL (36.4-46.3); Red Blood Count 3.48 Miln/mm3 (4.00-5.20); White Blood Count 8.8 Thou/mm3 (3.6-11.0)
[2025-03-24 07:17] LABS: Alanine Aminotransferase 8 U/L (10-49); Albumin, Serum 3.5 gm/dL (3.4-4.8); Albumin/Globulin Ratio 1.5 (1.2-2.2); Alkaline Phosphatase 54 U/L (46-116); Anion Gap 13 (7-16); Aspartate Amino Transferase 18 U/L (0-34); BUN/Creatinine Ratio 10 Ratio (12-20); Bilirubin,Total 0.3 mg/dL (0.3-1.2); Blood Urea Nitrogen < 5 mg/dL (9-23); Calcium 9.2 mg/dL (8.3-10.6); Calcium (Corrected) 9.6 mg/dL (8.5-10.1); Carbon Dioxide 21.2 mMol/L (20.0-31.0); Chloride 106 mMol/L (98-107); Creatinine (Component) 0.5 mg/dL (0.6-1.3); Estimated Creatinine Clearance 50.9 mL/min (>60); Globulin 2.3 gm/dL (2.3-3.5); Glucose 65 mg/dL (74-106); Magnesium 1.6 mg/dL (1.6-2.6); Osmolality,Calculated 274 (275-295); Phosphorous 2.6 mg/dL (2.4-5.1); Potassium 3.7 mMol/L (3.4-5.1); Sodium 140 mMol/L (136-145); Total Protein 5.8 gm/dL (5.7-8.2); eGFR > 60 See Note
--- NOTE | 2025-03-24 08:40 | ESPR_ITS ---
<Statement entered by Kaleigh Kaiser MD - 03/24/25 13:45> Patient seen and examined at bedside. No acute overnight events reported. Patient has not ate her breakfast or lunch due to patient forgetting to bring her dentures. Patient's son will bring her dentures so she can eat. Patient denies any other pain except for her right shoulder pain that is currently in a sling. Patient was made aware of her incidental liver and lung masses found on CT imaging and was advised to follow-up outpatient for further management. Anticipate discharge within 24 to 48 hours. I discussed with and supervised the fashion buying internship physician who took care of this patient. I personally saw and examined the patient and discussed the assessment and plan with the entire medicine team, including my attending Dr. Boone, I agree with most of the assessment and plan as documented below Kaleigh Kaiser M.D. PGY-3 Disclaimer: Despite multiple revisions, due to the dictation software being used, the document bellow may not be free of grammatical errors including phonetic/typographic errors. However, this does not deter from our commitment to providing health care in the patient's best interest in mind. Documentation for date of: 03/24/25 Subjective Subjective Interval history: 03/24/25: No acute events overnight. Vital signs within normal limits. Patient was evaluated and examined at bedside. Patient states that she forgot to bring her denture. Talked to RN to call her son if they can bring them for her. Patient denies any chest pain, shortness of breath or nausea or vomiting. Patient was informed of her medical problems and current medical therapy. She was also informed about the incidental liver and lung masses that were found on CT scan and advised her to follow up with their PCP upon discharge for further management. Patient does not have any complaints at this time. Exam Vital Signs Temp Pulse Resp BP Pulse Ox O2 Del Method O2 Flow Rate 97.4 F 97 16 144/72 H 92 L Room Air 2 03/24/25 08:00 03/24/25 08:00 03/24/25 08:00 03/24/25 08:00 03/24/25 08:00 03/24/25 08:00 03/23/25 19:19 Narrative Exam GENERAL * Frail, elderly lady, NAD, Laying comfortably on hospital bed. HEENT * NCAT.?RINKU. Oral mucosa is moist. Patent Nares. NECK * Supple, nontender, no JVD. CHEST * RRR, no m/g/r * CTAB, no w/r/r, symmetrical expansion. ABDOMEN * Soft, flat, nontender. No guarding/rebound tenderness/masses. * Bowel sounds presents EXTREMITIES * No edema/cyanosis.? SKIN * Warm and dry, no jaundice/rashes. NEUROMUSCULAR * No lumbar or midline, no CVA, no paraspinal muscle spasm or tenderness. * Moves all 4 extremities well, with full ROM and good CSM. * STANLEY x4, CN II-XII grossly intact. * No focal neurologic deficits. PSYCHIATRY * Normal mood and affect, cooperative, no SI or HI or hallucinations. Objective Labs 03/25/25 04:58 03/25/25 04:58 Labs: Laboratory Results - last 24 hr 03/23/25 03/23/25 03/23/25 11:09 14:35 14:40 WBC 17.5 H RBC 3.58 L Hgb 12.0 Hct 35.1 L MCV 98 MCH 33.5 MCHC 34.2 RDW Std Deviation 45.2 Plt Count 224 Neut % (Auto) 91 H Lymph % (Auto) 4 L Henry % (Auto) 4 Eos % (Auto) 0 Baso % (Auto) 0 Neut # (Auto) 16.0 H Lymph # (Auto) 0.7 L Henry # (Auto) 0.7 Eos # (Auto) 0.0 Baso # (Auto) 0.0 Immature Gran # (Auto) 0.10 H Absolute Nucleated RBC 0.00 Immature Gran % 1 H Nucleated RBC % 0 PT 10.3 INR 0.9 Puncture Site ABG pH ABG pCO2 ABG pO2 ABG HCO3 ABG O2 Saturation ABG Base Excess Oxygen Liter Flow Sodium 138 Potassium 3.6 Chloride 104 Carbon Dioxide 22.3 Anion Gap 12 BUN 8 L Creatinine 0.7 Estim Creat Clear Calc Not Performed. eGFR > 60 BUN/Creatinine Ratio 11 L Glucose 119 H Calculated Osmolality 274 L Lactic Acid 0.8 Calcium 9.3 Corrected Calcium 9.4 Phosphorus Magnesium 1.6 Total Bilirubin 0.4 AST 14 ALT 7 L Alkaline Phosphatase 55 Ammonia < 10 L Troponin I < 0.020 Total Protein 6.2 Albumin 3.9 Globulin 2.3 Albumin/Globulin Ratio 1.7 TSH 0.12 L Free T4 0.98 Free T3 pg/dL 2.2 L Ur Collection Type Catheter Urine Color Lt-Yellow Urine Clarity Hazy Urine pH 5.5 Ur Specific [place] 1.012 Urine Protein Negative Urine Glucose (UA) Negative Urine Ketones 1+ A Urine Blood 2+ A Urine Nitrite Positive Urine Bilirubin Negative Urine Urobilinogen (Auto) Negative Ur Leukocyte Esterase Negative Urine RBC 1 Urine WBC 5 Ur Squamous Epith Cells < 1 Urine Bacteria 1+ A Ur Culture Indicated? Yes Salicylates < 3.0 Urine Opiates Screen Positive A Urine Fentanyl Screen Negative Acetaminophen < 2.0 L Ur Barbiturates Screen Negative U Amphetamin/Meth Scrn Negative U Benzodiazepines Scrn Positive A U Cocaine Metab Screen Negative U Marijuana (THC) Screen Negative Ethyl Alcohol < 3.0 03/23/25 03/24/25 14:41 04:45 WBC 8.8 D RBC 3.48 L Hgb 11.9 L Hct 35.6 L MCV 102 H MCH 34.2 MCHC 33.4 RDW Std Deviation 47.7 H Plt Count 202 Neut % (Auto) 86 H Lymph % (Auto) 9 L Henry % (Auto) 5 Eos % (Auto) 0 Baso % (Auto) 0 Neut # (Auto) 7.6 Lymph # (Auto) 0.8 L Henry # (Auto) 0.4 Eos # (Auto) 0.0 Baso # (Auto) 0.0 Immature Gran # (Auto) 0.03 H Absolute Nucleated RBC 0.00 Immature Gran % 0 Nucleated RBC % 0 PT INR Puncture Site Right Radial ABG pH 7.43 ABG pCO2 33 ABG pO2 98 ABG HCO3 22 ABG O2 Saturation 99 H ABG Base Excess -2 Oxygen Liter Flow 2 Sodium 140 Potassium 3.7 Chloride 106 Carbon Dioxide 21.2 Anion Gap 13 BUN < 5 L Creatinine 0.5 L Estim Creat Clear Calc 50.9 L eGFR > 60 BUN/Creatinine Ratio 10 L Glucose 65 L D Calculated Osmolality 274 L Lactic Acid Calcium 9.2 Corrected Calcium 9.6 Phosphorus 2.6 Magnesium 1.6 Total Bilirubin 0.3 AST 18 ALT 8 L Alkaline Phosphatase 54 Ammonia Troponin I Total Protein 5.8 Albumin 3.5 Globulin 2.3 Albumin/Globulin Ratio 1.5 TSH Free T4 Free T3 pg/dL Ur Collection Type Urine Color Urine Clarity Urine pH Ur Specific [place] Urine Protein Urine Glucose (UA) Urine Ketones Urine Blood Urine Nitrite Urine Bilirubin Urine Urobilinogen (Auto) Ur Leukocyte Esterase Urine RBC Urine WBC Ur Squamous Epith Cells Urine Bacteria Ur Culture Indicated? Salicylates Urine Opiates Screen Urine Fentanyl Screen Acetaminophen Ur Barbiturates Screen U Amphetamin/Meth Scrn U Benzodiazepines Scrn U Cocaine Metab Screen U Marijuana (THC) Screen Ethyl Alcohol ABG Interpretation ABG results: 03/23/25 14:41 ABG pH 7.43 ABG pCO2 33 ABG pO2 98 ABG HCO3 22 ABG O2 Saturation 99 H ABG Base Excess -2 Quality Measures Quality Measures none Advance care planning discussed with:: patient Assessment & Plan Assessment Current Active Medications: Generic Name Dose Route Start Last Admin Trade Name Freq PRN Reason Stop Dose Admin Acetaminophen 650 mg 03/23/25 20:55 Acetaminophen 325 Mg Tablet PO 04/22/25 20:54 Q6H PRN PAIN SCALE 1-3 (mild Acetaminophen 650 mg 03/23/25 20:55 Acetaminophen 325 Mg Tablet PO 04/22/25 20:54 Q6H PRN Fever >100.4 Hydrocodone Bitart/Acetaminophen 1 tab 03/23/25 20:55 03/23/25 23:03 Hydrocodone/Apap 10/325 Tab PO 03/28/25 20:54 1 tab Q4HR PRN Administration PAIN SCALE 7-10 (Severe Albuterol/Ipratropium 3 ml 03/23/25 20:55 Albuterol/Ipratropium (Duoneb) Rt Pearl 3 Ml Nebu INH 04/22/25 20:54 Q6HRRT PRN Wheezing Amlodipine Besylate 10 mg 03/24/25 09:00 Amlodipine Besylate 5 Mg Tablet PO 04/23/25 08:59 QDAY BRENDA Diazepam 10 mg 03/24/25 09:00 Diazepam 5 Mg Tablet PO 03/29/25 08:59 DAILY BRENDA Heparin Sodium (Porcine) 5,000 unit 03/23/25 21:00 03/23/25 23:02 Heparin Sod Inj 5000 Unit/Ml Vial SC 04/06/25 20:59 5,000 unit BID BERNDA Administration Ceftriaxone Sodium/Dextrose 1 gm in 50 mls @ 100 mls/hr 03/24/25 09:00 Rocephin/D5w 1gm Iv Premix IV 03/31/25 08:59 QDAY BRENDA Azithromycin 250 mg/ Sodium 250 mls @ 250 mls/hr 03/25/25 09:00 Chloride IV 04/01/25 08:59 QDAY BRENDA Sodium Chloride 1,000 mls @ 30 mls/hr 03/23/25 21:00 03/23/25 23:03 Ns IV 04/22/25 20:59 30 mls/hr .Q24H BRENDA Administration Magnesium Sulfate 4 gm in 50 mls @ 12.5 mls/hr 03/24/25 07:34 Magnesium Sulfate Ivpb IV 03/24/25 11:33 X1 ONE Multivitamins 1 tab 03/24/25 09:00 Multivitamins Tablet PO 04/23/25 08:59 QDAY BRENDA Ondansetron HCl 4 mg 03/23/25 20:55 Ondansetron Inj 2 Mg/Ml Inj 2 Ml IVP 04/22/25 20:54 Q6H PRN NAUSEA OR VOMITING Protocol Oxycodone/Acetaminophen 1 tab 03/23/25 20:55 Oxycodone/Apap 5/325 Tablet PO 03/28/25 20:54 Q6H PRN PAIN SCALE 4-6 (Moderate Pantoprazole Sodium 40 mg 03/23/25 21:00 03/23/25 23:02 Pantoprazole Inj 40 Mg Vial IVP 04/22/25 20:59 40 mg QDAY BRENDA Administration Thiamine HCl 100 mg 03/24/25 09:00 Thiamine 100 Mg Tablet PO 04/23/25 08:59 QDAY BRENDA Thyroid 60 mg 03/24/25 09:00 Thyroid 30 Mg Tablet PO 04/23/25 08:59 QDAY BRENDA Plan This is a 84-year-old female with PMHx of hypothyroidism, HTN, COPD, chronic back pain, presenting to the ED with acute altered mental status admitted for acute encephalopathy work up. #Acute Encephalopathy 2/2 #Community Acquired PNA #UTI Presented with acute changes mental status starting 03/23/25. No focal neurological deficits subjectively or on exam. Head CT was negative for acute pathology. Symptoms most likely related to infection given leukocytosis and pneumonia as seen on imaging plus UTI based on UA. Currently afebrile, satting well on room air. She received a total of 2 L IV fluids. Mentation overall improving. Leukocytosis improved to 8.8 Plan: ? Pending pancultures ? Continue Rocephin and Azithromycin ? Pending physical therapy - CTM vital signs and labs #Right full thickness rotator cuff tear Complains of chronic right arm pain, unable to lift her arm more than 30 degree secondary to pain. No bony deformity noted on exam, however exam was limited secondary to pain during active motion. Right shoulder x-ray showed rotator cuff tear. Currently we don't have orthopedic coverage. Plan: - Right arm sling - Will continue with pain control - Follow up outpatient with orthopedic surgeon #Chronic caloric malnutrition #Underweight BMI of 14 BMI significantly low, appears cachectic on exam. Reports unintentional weight loss, about 4 lbs unintentional weight loss, about 4 lbs over the last 2 weeks. Although appetite seems to be normal. Patient's unintentional weight losss could be 2/2 poor oral intake vs malignancy in the setting of incidental masses found in the liver and lung. Plan: ? Continue daily Thiamine and multivitamins. ? Consulted registered dietitian. ? Replete electrolytes as needed. - Patient will need to follow up outpatient with heme-onc for further work-up and management #COPD Diagnosed more than 10 years ago. Likely related to chronic cigarette smoking. Denies wheezing or shortness of breath. Low suspicion for COPD exacerbation Not on oxygen at home CT chest shows COPD changes of hyper extended lungs Plan: - Titrate oxygen saturation to 88-92% ? DuoNebs PRN #Hypothyroism #HTN BP slightly elevated. Thyroid function within acceptable range. TSH: 0.12, free T4: 0.98 Plan: ? Continue home thyroid 60 mg daily ? Continue home Amloidipine 10 mg daily #Muscle spasm #Chronic lumbago Chronic Plan: ? Multimodal pain control #Incidental liver lesion #Incidental pulmonary nodule 19 mm enhancing lesion in the upper right liver lobe seen on CT abdomen. 4 mm pulmonary nodule in the right lower lobe seen on CT chest. Patient was informed about these incidental findings Plan: - Advised patient to follow up with their PCP upon discharge for repeat imaging and further management Health maintenance Diet: Regular diet GI prophylaxis: PROTONIX DVT prophylaxis: HEPARIN subcu Antibiotics: CEFTRIAXONE, AZITHROMYCIN CODE STATUS: DNR Disposition: Treating acute encephalopathy, caloric malnutrition, and rotator cuff tear Plan was discussed with attending physician Dr. Boone, and senior residents Drs. Cisse and Awilda. Liset Gold DO PGY-1 Attending Provider Attestation/Addendum I have examined the patient, reviewed labs and imaging findings, discussed the case with the resident(s), and reviewed entered orders. I agree with the plan of care as outlined in this note, with these additional summaries/recommendations: Patient seen at bedside. Patient admitted overnight for acute encephalopathy most likely secondary to infectious etiology. Per chart review patient's mental status is already improving compared to yesterday. We will continue to treat underlying infection and monitor for improvement. Patient diagnosed with community-acquired pneumonia and urinary tract infection. Continue IV antibiotics. Follow-up culture results. Tylenol as needed for fever. Patient was also noted to have 4 mm right lower lung nodule and repeat imaging in 6 months for continued surveillance and management. CT of abdomen and pelvis revealed 19 mm enhancing lesion in right upper lobe liver. Recommend outpatient elective MRI. Patient also endorsed right shoulder pain on admission although this does appear more chronic in nature. Patient denies any significant right shoulder pain at this time and has moderately reduced range of motion. Imaging revealed obliteration of the space between the acronym and humeral head seen with full thickness rotator cuff tear. Continue pain management and sling ordered. Patient will need to follow-up outpatient with orthopedics for further interventions. Breathing treatments as needed for COPD. Continue home levothyroxine. Patient updated on the plan and in agreement. All questions answered to satisfaction. Please see residents note for additional details and management. Dr. Paolo MD
[2025-03-24] MEDS: DIAZEPAM 5 MG TABLET 10 MG PO (08:56)
[2025-03-24] MEDS: THIAMINE 100 MG TABLET PO (08:58)
[2025-03-24] MEDS: MULTIVITAMINS TABLET 1 TAB PO (08:58)
[2025-03-24] MEDS: cefTRIAXone/D5w 1gm IV premix 1 GM/50 ML BAG IV (08:59)
[2025-03-24] MEDS: Magnesium Sulfate 4 GM Ivpb 4 GM/50 ML BAG IV (08:59)
[2025-03-24] MEDS: HEPARIN SOD INJ 5000 UNIT/ML VIAL SC ×2 (09:02→20:04)
--- NOTE | 2025-03-24 10:36 | PC.SS ---
Patient Milagros Elmore 84 Year old female admitted for PNA, UTI. SS contacted patient's son, Geovanny Gomez to verify demographic information. Patient's son reports patient lives at home with him and he is patient's surrogate decision maker, [phone]. Prior to admission patient utilized a wheel chair and Rollator walker to assist with ambulation. Patient was able to complete all ADL's independently. Pharmacy of choice is [facility]. PCP is Jenni Gallardo. Patient's son reports patient will return back home when medically cleared, he will transport patient home. No further needs identified at the time. Discharge plan. Home Next of kin: Son, Geovanny Gomez
--- NOTE | 2025-03-24 17:57 | PC.NURSE ---
PATIENT PULLED OUT IV, PATIENT REFUSED TO REPLACE, WILL LET DR. PRADO KNOW..
--- NOTE | 2025-03-24 18:11 | PC.NURSE ---
DR PRADO AWARE FOR PATIENT REFUSED TO REINSERT IV.
[2025-03-25] VITALS (11 sets, daily range): BP systolic 122–155; BP diastolic 61–89; PULSE 56–80; RESP 16–19; TEMP 36.1–36.5; O2SAT 95–98
--- NOTE | 2025-03-25 02:07 | PC.NURSE ---
Dr. Tucker came to assess patient. Dr. Tucker did not want to medicate patient as he said patient will become more delirious. Dr. Tucker said if needed bilateral soft wrist restraints okay.
[2025-03-25 05:38] LABS: Basophils # (Auto) 0.0 Thou/mm3 (0.0-0.2); Basophils % (Auto) 0 % (0-2.5); Eosinophils # (Auto) 0.1 Thou/mm3 (0.0-0.5); Eosinophils % (Auto) 2 % (0-10); Hematocrit 35.9 % (36.0-46.0); Hemoglobin 12.2 g/dL (12.0-16.0); Immature Granulocytes Auto 0.01 Thou/mm3 (0.00-0.00); Lymphocytes # (Auto) 0.7 Thou/mm3 (1.0-4.8); Lymphocytes % (Auto) 13 % (10-50); Mean Corpuscular HGB Conc 34.0 g/dl (31.0-37.0); Mean Corpuscular Hemoglobin 33.6 pg (25.0-35.0); Mean Corpuscular Volume 99 fL (80-100); Monocytes # (Auto) 0.4 Thou/mm3 (0.0-0.8); Monocytes % (Auto) 8 % (0-12); Neutrophils # (Auto) 4.1 Thou/mm3 (1.8-7.7); Neutrophils % (Auto) 77 % (37-80); Nucleated Red Blood Cell # 0.00 Thou/mm3 (0.00-0.00); Nucleated Red Blood Cell % 0 /100 WBC (0); Platelet Count 216 Thou/mm3 (140-440); RDW Standard Deviation 44.3 fL (36.4-46.3); Red Blood Count 3.63 Miln/mm3 (4.00-5.20); White Blood Count 5.3 Thou/mm3 (3.6-11.0)
[2025-03-25 06:06] LABS: Alanine Aminotransferase 10 U/L (10-49); Albumin, Serum 3.8 gm/dL (3.4-4.8); Albumin/Globulin Ratio 1.6 (1.2-2.2); Alkaline Phosphatase 57 U/L (46-116); Anion Gap 10 (7-16); Aspartate Amino Transferase 20 U/L (0-34); BUN/Creatinine Ratio 12 Ratio (12-20); Bilirubin,Total 0.2 mg/dL (0.3-1.2); Blood Urea Nitrogen 7 mg/dL (9-23); Calcium 9.6 mg/dL (8.3-10.6); Calcium (Corrected) 9.8 mg/dL (8.5-10.1); Carbon Dioxide 26.4 mMol/L (20.0-31.0); Chloride 101 mMol/L (98-107); Creatinine (Component) 0.6 mg/dL (0.6-1.3); Estimated Creatinine Clearance 42.4 mL/min (>60); Globulin 2.4 gm/dL (2.3-3.5); Glucose 120 mg/dL (74-106); Magnesium 1.8 mg/dL (1.6-2.6); Osmolality,Calculated 272 (275-295); Phosphorous 1.8 mg/dL (2.4-5.1); Potassium 2.9 mMol/L (3.4-5.1); Sodium 137 mMol/L (136-145); Total Protein 6.2 gm/dL (5.7-8.2); eGFR > 60 See Note
[2025-03-25] MEDS: POTASSIUM CHLORIDE 10% 20 MEQ/15 ML UDC 40 MEQ PO (07:39)
[2025-03-25] MEDS: THIAMINE 100 MG TABLET PO (09:41)
[2025-03-25] MEDS: HEPARIN SOD INJ 5000 UNIT/ML VIAL SC ×2 (09:41→20:05)
[2025-03-25] MEDS: MULTIVITAMINS TABLET 1 TAB PO (09:41)
[2025-03-25] MEDS: DIAZEPAM 5 MG TABLET 10 MG PO (09:41)
[2025-03-25] MEDS: cefTRIAXone/D5w 1gm IV premix 1 GM/50 ML BAG IV (10:02)
[2025-03-25] MEDS: POTASSIUM PHOS 22.5 MMOL in SODIUM CHLORIDE 0.9% 500 ML 500 ML 82.778 MMOL IV (10:44)
[2025-03-25] MEDS: THYROID 30 MG TABLET 60 MG PO (10:44)
[2025-03-25] MEDS: AZITHROMYCIN INJ 250 MG in SODIUM CHLORIDE 0.9% 250 ML 250 ML IV (10:45)
[2025-03-25] MEDS: Magnesium Sulfate 2 GM Ivpb 2 GM/50 ML BAG IV (12:52)
--- NOTE | 2025-03-25 14:57 | PC.SS ---
Rounding: Pt mentation decline, monitor overnight, on BWR, DC plan home
--- NOTE | 2025-03-25 15:26 | ESPR_ITS ---
Documentation for date of: 03/25/25 Subjective Subjective Interval history: Patient examined at bedside, overnight reported that agitation was worsening and patient was try to get out of bed and pulling at lines. She was placed on bilateral soft wrist restraints. And one-on-one sitter placed at bedside. Today she is oriented to self and time only. She is not in the hospital but at her own house. Vitals are stable, electrolytes repleted as needed. Continue treatment with Rocephin for E. coli UTI and azithromycin as well for community-acquired pneumonia. Physical therapy assessment stated that patient would benefit from home health therapy. Dissipate discharge in next 24 hours. Exam Vital Signs Temp Pulse Resp BP Pulse Ox O2 Del Method O2 Flow Rate 97.4 F 79 18 136/89 H 95 Room Air 2 03/25/25 12:00 03/25/25 12:00 03/25/25 12:00 03/25/25 12:00 03/25/25 12:00 03/25/25 12:00 03/25/25 00:00 Narrative Exam GENERAL * Frail, elderly lady, NAD, Laying comfortably on hospital bed. HEENT * NCAT.?RINKU. Oral mucosa is moist. Patent Nares. NECK * Supple, nontender, no JVD. CHEST * RRR, no m/g/r * CTAB, no w/r/r, symmetrical expansion. ABDOMEN * Soft, flat, nontender. No guarding/rebound tenderness/masses. * Bowel sounds presents EXTREMITIES * No edema/cyanosis.? SKIN * Warm and dry, no jaundice/rashes. NEUROMUSCULAR * No lumbar or midline, no CVA, no paraspinal muscle spasm or tenderness. * Moves all 4 extremities well, with full ROM and good CSM. * STANLEY x4, CN II-XII grossly intact. * No focal neurologic deficits. * AOx2 today PSYCHIATRY * Normal mood and affect Objective Labs 03/26/25 05:25 03/26/25 05:25 Labs: Laboratory Results - last 24 hr 03/25/25 04:58 WBC 5.3 RBC 3.63 L Hgb 12.2 Hct 35.9 L MCV 99 MCH 33.6 MCHC 34.0 RDW Std Deviation 44.3 Plt Count 216 Neut % (Auto) 77 Lymph % (Auto) 13 [place] % (Auto) 8 Eos % (Auto) 2 Baso % (Auto) 0 Neut # (Auto) 4.1 Lymph # (Auto) 0.7 L [place] # (Auto) 0.4 Eos # (Auto) 0.1 Baso # (Auto) 0.0 Immature Gran # (Auto) 0.01 H Absolute Nucleated RBC 0.00 Immature Gran % 0 Nucleated RBC % 0 Sodium 137 Potassium 2.9 L D Chloride 101 Carbon Dioxide 26.4 Anion Gap 10 BUN 7 L Creatinine 0.6 Estim Creat Clear Calc 42.4 L eGFR > 60 BUN/Creatinine Ratio 12 Glucose 120 H D Calculated Osmolality 272 L Calcium 9.6 Corrected Calcium 9.8 Phosphorus 1.8 L Magnesium 1.8 Total Bilirubin 0.2 L AST 20 ALT 10 Alkaline Phosphatase 57 Total Protein 6.2 Albumin 3.8 Globulin 2.4 Albumin/Globulin Ratio 1.6 ABG Interpretation ABG results: 03/23/25 14:41 ABG pH 7.43 ABG pCO2 33 ABG pO2 98 ABG HCO3 22 ABG O2 Saturation 99 H ABG Base Excess -2 Quality Measures Quality Measures none Advance care planning discussed with:: patient Assessment & Plan Assessment Current Active Medications: Generic Name Dose Route Start Last Admin Trade Name Freq PRN Reason Stop Dose Admin Acetaminophen 650 mg 03/23/25 20:55 Acetaminophen 325 Mg Tablet PO 04/22/25 20:54 Q6H PRN PAIN SCALE 1-3 (mild Acetaminophen 650 mg 03/23/25 20:55 Acetaminophen 325 Mg Tablet PO 04/22/25 20:54 Q6H PRN Fever >100.4 Hydrocodone Bitart/Acetaminophen 1 tab 03/23/25 20:55 03/23/25 23:03 Hydrocodone/Apap 10/325 Tab PO 03/28/25 20:54 1 tab Q4HR PRN Administration PAIN SCALE 7-10 (Severe Albuterol/Ipratropium 3 ml 03/23/25 20:55 Albuterol/Ipratropium (Duoneb) Rt Pearl 3 Ml Nebu INH 04/22/25 20:54 Q6HRRT PRN Wheezing Amlodipine Besylate 10 mg 03/24/25 09:00 03/25/25 09:40 Amlodipine Besylate 5 Mg Tablet PO 04/23/25 08:59 10 mg QDAY BRENDA Administration Diazepam 10 mg 03/24/25 09:00 03/25/25 09:41 Diazepam 5 Mg Tablet PO 03/29/25 08:59 10 mg DAILY BRENDA Administration Heparin Sodium (Porcine) 5,000 unit 03/23/25 21:00 03/25/25 09:41 Heparin Sod Inj 5000 Unit/Ml Vial SC 04/06/25 20:59 5,000 unit BID BRENDA Administration Ceftriaxone Sodium/Dextrose 1 gm in 50 mls @ 100 mls/hr 03/24/25 09:00 03/25/25 10:02 Rocephin/D5w 1gm Iv Premix IV 03/31/25 08:59 100 mls/hr QDAY BRENDA Administration Azithromycin 250 mg/ Sodium 250 mls @ 250 mls/hr 03/25/25 09:00 03/25/25 10:45 Chloride IV 04/01/25 08:59 250 mls/hr QDAY BRENDA Administration Sodium Chloride 1,000 mls @ 30 mls/hr 03/23/25 21:00 03/25/25 08:23 Ns IV 04/22/25 20:59 Infused .Q24H BRENDA Infusion Multivitamins 1 tab 03/24/25 09:00 03/25/25 09:41 Multivitamins Tablet PO 04/23/25 08:59 1 tab QDAY BRENDA Administration Ondansetron HCl 4 mg 03/23/25 20:55 Ondansetron Inj 2 Mg/Ml Inj 2 Ml IVP 04/22/25 20:54 Q6H PRN NAUSEA OR VOMITING Protocol Oxycodone/Acetaminophen 1 tab 03/23/25 20:55 Oxycodone/Apap 5/325 Tablet PO 03/28/25 20:54 Q6H PRN PAIN SCALE 4-6 (Moderate Pantoprazole Sodium 40 mg 03/23/25 21:00 03/25/25 10:03 Pantoprazole Inj 40 Mg Vial IVP 04/22/25 20:59 40 mg QDAY BRENDA Administration Thiamine HCl 100 mg 03/24/25 09:00 03/25/25 09:41 Thiamine 100 Mg Tablet PO 04/23/25 08:59 100 mg QDAY BRENDA Administration Thyroid 60 mg 03/24/25 09:00 03/25/25 10:44 Thyroid 30 Mg Tablet PO 04/23/25 08:59 60 mg QDAY BRENDA Administration Plan This is a 84-year-old female with PMHx of hypothyroidism, HTN, COPD, chronic back pain, presenting to the ED with acute altered mental status admitted for acute encephalopathy work up. #Acute Encephalopathy (resolved) 2/2 #Community Acquired PNA #E coli UTI Presented with acute changes mental status starting 03/23/25. No focal neurological deficits subjectively or on exam. Head CT was negative for acute pathology. Symptoms most likely related to infection given leukocytosis and pneumonia as seen on imaging plus UTI based on UA. Currently afebrile, satting well on room air. She received a total of 2 L IV fluids. Mentation overall improving. Leukocytosis improved to 8.8 -blood cultures negative -urine cultures grew Ecoli, pansensitive ? Continue Rocephin and Azithromycin ? PT--will need HH for PT #Right full thickness rotator cuff tear Complains of chronic right arm pain, unable to lift her arm more than 30 degree secondary to pain. No bony deformity noted on exam, however exam was limited secondary to pain during active motion. Right shoulder x-ray showed rotator cuff tear. She is exhibiting good movement with no pain. - Right arm sling - Will continue with pain control - Follow up outpatient with orthopedic surgeon #Chronic caloric malnutrition #Underweight BMI of 14 BMI significantly low, appears cachectic on exam. Reports unintentional weight loss, about 4 lbs unintentional weight loss, about 4 lbs over the last 2 weeks. Although appetite seems to be normal. Patient's unintentional weight losss could be 2/2 poor oral intake vs malignancy in the setting of incidental masses found in the liver and lung. Plan: ? Continue daily Thiamine and multivitamins. ? Consulted registered dietitian. ? Replete electrolytes as needed. - Patient will need to follow up outpatient with heme-onc for further work-up and management #COPD Diagnosed more than 10 years ago. Likely related to chronic cigarette smoking. Denies wheezing or shortness of breath. Low suspicion for COPD exacerbation Not on oxygen at home CT chest shows COPD changes of hyper extended lungs Plan: - Titrate oxygen saturation to 88-92% ? DuoNebs PRN #Hypothyroism #HTN BP slightly elevated. Thyroid function within acceptable range. TSH: 0.12, free T4: 0.98 Plan: ? Continue home thyroid 60 mg daily ? Continue home Amloidipine 10 mg daily #Incidental liver lesion #Incidental pulmonary nodule 19 mm enhancing lesion in the upper right liver lobe seen on CT abdomen. 4 mm pulmonary nodule in the right lower lobe seen on CT chest. Patient was informed about these incidental findings - Advised patient to follow up with their PCP upon discharge for repeat imaging and further management Health maintenance Diet: Regular diet GI prophylaxis: PROTONIX DVT prophylaxis: HEPARIN subcu Antibiotics: CEFTRIAXONE, AZITHROMYCIN CODE STATUS: DNR Disposition: Treating acute encephalopathy, caloric malnutrition, and rotator cuff tear Plan was discussed with attending physician Dr. Boone. Loida Cisse, PGY2 Attending Provider Attestation/Addendum I have examined the patient, reviewed labs and imaging findings, discussed the case with the resident(s), and reviewed entered orders. I agree with the plan of care as outlined in this note, with these additional summaries/recommendations: Patient seen at bedside. Overnight patient had code burns for agitation and combativeness. She was placed on soft wrist restraints. Patient's son at bedside today. She appears more alert although not yet back to baseline. Patient admitted for acute encephalopathy originally secondary to infectious etiology. Patients mental status originally improved although patient likely developed sundowning overnight given her age and unfamiliar environment. We will continue frequent reorientation. Encouraged patient's son to visit is much as possible. Patient diagnosed with community-acquired pneumonia and urinary tract infection. Continue IV antibiotics. Follow-up culture results. Tylenol as needed for fever. Patient was also noted to have 4 mm right lower lung nodule and repeat imaging in 6 months for continued surveillance and management. CT of abdomen and pelvis revealed 19 mm enhancing lesion in right upper lobe liver. Recommend outpatient elective MRI. Patient also endorsed right shoulder pain on admission although this does appear more chronic in nature. Patient denies any significant right shoulder pain at this time and has moderately reduced range of motion. Imaging revealed obliteration of the space between the acronym and humeral head seen with full thickness rotator cuff tear. Continue pain management and sling ordered. Patient will need to follow-up outpatient with orthopedics for further interventions. Breathing treatments as needed for COPD. Continue home levothyroxine. Patient updated on the plan and in agreement. All questions answered to satisfaction. Please see residents note for additional details and management. Dr. Paolo MD
[2025-03-26] VITALS (10 sets, daily range): BP systolic 126–179; BP diastolic 66–101; PULSE 63–85; RESP 17–98; TEMP 36–36.3; O2SAT 95–97
[2025-03-26 06:18] LABS: Basophils # (Auto) 0.0 Thou/mm3 (0.0-0.2); Basophils % (Auto) 0 % (0-2.5); Eosinophils # (Auto) 0.2 Thou/mm3 (0.0-0.5); Eosinophils % (Auto) 3 % (0-10); Hematocrit 38.5 % (36.0-46.0); Hemoglobin 12.9 g/dL (12.0-16.0); Immature Granulocytes Auto 0.01 Thou/mm3 (0.00-0.00); Lymphocytes # (Auto) 1.1 Thou/mm3 (1.0-4.8); Lymphocytes % (Auto) 22 % (10-50); Mean Corpuscular HGB Conc 33.5 g/dl (31.0-37.0); Mean Corpuscular Hemoglobin 32.9 pg (25.0-35.0); Mean Corpuscular Volume 98 fL (80-100); Monocytes # (Auto) 0.6 Thou/mm3 (0.0-0.8); Monocytes % (Auto) 11 % (0-12); Neutrophils # (Auto) 3.2 Thou/mm3 (1.8-7.7); Neutrophils % (Auto) 63 % (37-80); Nucleated Red Blood Cell # 0.00 Thou/mm3 (0.00-0.00); Nucleated Red Blood Cell % 0 /100 WBC (0); Platelet Count 256 Thou/mm3 (140-440); RDW Standard Deviation 43.6 fL (36.4-46.3); Red Blood Count 3.92 Miln/mm3 (4.00-5.20); White Blood Count 5.1 Thou/mm3 (3.6-11.0)
[2025-03-26 06:49] LABS: Alanine Aminotransferase < 7 U/L (10-49); Albumin, Serum 3.9 gm/dL (3.4-4.8); Albumin/Globulin Ratio 1.5 (1.2-2.2); Alkaline Phosphatase 59 U/L (46-116); Anion Gap 10 (7-16); Aspartate Amino Transferase 21 U/L (0-34); BUN/Creatinine Ratio 12 Ratio (12-20); Bilirubin,Total 0.2 mg/dL (0.3-1.2); Blood Urea Nitrogen 6 mg/dL (9-23); Calcium 9.5 mg/dL (8.3-10.6); Calcium (Corrected) 9.6 mg/dL (8.5-10.1); Carbon Dioxide 26.2 mMol/L (20.0-31.0); Chloride 102 mMol/L (98-107); Creatinine (Component) 0.5 mg/dL (0.6-1.3); Estimated Creatinine Clearance 50.9 mL/min (>60); Globulin 2.6 gm/dL (2.3-3.5); Glucose 113 mg/dL (74-106); Magnesium 2.0 mg/dL (1.6-2.6); Osmolality,Calculated 274 (275-295); Phosphorous 2.8 mg/dL (2.4-5.1); Potassium 3.7 mMol/L (3.4-5.1); Sodium 138 mMol/L (136-145); Total Protein 6.5 gm/dL (5.7-8.2); eGFR > 60 See Note
[2025-03-26] MEDS: DIAZEPAM 5 MG TABLET 10 MG PO (08:42)
[2025-03-26] MEDS: MULTIVITAMINS TABLET 1 TAB PO (08:43)
[2025-03-26] MEDS: THIAMINE 100 MG TABLET PO (08:43)
[2025-03-26] MEDS: cefTRIAXone/D5w 1gm IV premix 1 GM/50 ML BAG IV (08:44)
[2025-03-26] MEDS: HEPARIN SOD INJ 5000 UNIT/ML VIAL SC ×2 (08:44→21:29)
[2025-03-26] MEDS: THYROID 30 MG TABLET 60 MG PO (08:45)
[2025-03-26] MEDS: AZITHROMYCIN INJ 250 MG in SODIUM CHLORIDE 0.9% 250 ML 250 ML IV (09:17)
[2025-03-26] MEDS: POT PHOS 15 mMol in NS 250 ML 15 MMOL/250 ML BAG 62.5 MMOL IV (09:17)
--- NOTE | 2025-03-26 10:46 | PD.RESPRO ---
Documentation for date of: 03/26/25 Subjective Subjective Interval history: Overnight, patient required bilateral wrist restraints. Patient was confused and trying to climb out of bed despite being on wrist restraints. Patient also is on diazepam 10 mg daily prescribed by her PCP for unknown cause, and will hold for now and lieu of patient's confused state. Patient at bedside today was alert and oriented to name only. However patient was muttering unintelligible words and unable to answer questions being asked of her, which was not the case few days ago. Patient's potassium was slightly low and will give 40 mill equivalents of p.o. potassium. Otherwise, patient may be suffering from worsening hospital delirium versus possible chronic dementia that has been undiagnosed. Will consult neurology for further recommendations. Patient's son was also seen at bedside who understands current course of action. Patient's son also mentioned that patient was scheduled to see an outpatient neurologist sometime in the next 2 weeks. Exam Vital Signs Temp Pulse Resp BP Pulse Ox O2 Del Method O2 Flow Rate 96.9 F 85 18 145/85 H 97 Room Air 2 03/26/25 04:00 03/26/25 10:35 03/26/25 07:20 03/26/25 10:35 03/26/25 07:20 03/26/25 04:00 03/25/25 00:00 Narrative Exam General Appearance: Pt is an elderly, frail woman in mild acute distress restless on hospital bed. Laying comfortably in bed. HEENT: NC/AT, no scleral icterus, no conjunctival pallor, MMM Lungs: CTAB, no wheezes or crackles appreciated CVS: RRR, S1/S2 heard, no murmurs or rubs appreciated ABD: Soft, non-tender, non-distended, BS + in all 4 quadrants EXT: no deformity/edema/lesions/cyanosis/clubbing, radial pulses 2+ BL, DP pulses 2 + BL SKIN: Skin exam normal without any rashes. Neuro: A&O x 1 to name. No gross neurological deficits. Motor and sensory grossly intact in B/L UL and LL except for right upper extremity, able to only lift arm to about 30 degrees. Psych: Appropriate mood and affect Objective Labs 03/27/25 05:02 03/27/25 05:02 Labs: Laboratory Results - last 24 hr 03/26/25 05:25 WBC 5.1 RBC 3.92 L Hgb 12.9 Hct 38.5 MCV 98 MCH 32.9 MCHC 33.5 RDW Std Deviation 43.6 Plt Count 256 D Neut % (Auto) 63 Lymph % (Auto) 22 [place] % (Auto) 11 Eos % (Auto) 3 Baso % (Auto) 0 Neut # (Auto) 3.2 Lymph # (Auto) 1.1 [place] # (Auto) 0.6 Eos # (Auto) 0.2 Baso # (Auto) 0.0 Immature Gran # (Auto) 0.01 H Absolute Nucleated RBC 0.00 Immature Gran % 0 Nucleated RBC % 0 Sodium 138 Potassium 3.7 D Chloride 102 Carbon Dioxide 26.2 Anion Gap 10 BUN 6 L Creatinine 0.5 L Estim Creat Clear Calc 50.9 L eGFR > 60 BUN/Creatinine Ratio 12 Glucose 113 H Calculated Osmolality 274 L Calcium 9.5 Corrected Calcium 9.6 Phosphorus 2.8 Magnesium 2.0 Total Bilirubin 0.2 L AST 21 ALT < 7 L Alkaline Phosphatase 59 Total Protein 6.5 Albumin 3.9 Globulin 2.6 Albumin/Globulin Ratio 1.5 ABG Interpretation ABG results: 03/23/25 14:41 ABG pH 7.43 ABG pCO2 33 ABG pO2 98 ABG HCO3 22 ABG O2 Saturation 99 H ABG Base Excess -2 Quality Measures Quality Measures none Advance care planning discussed with:: patient Assessment & Plan Assessment Current Active Medications: Generic Name Dose Route Start Last Admin Trade Name Freq PRN Reason Stop Dose Admin Acetaminophen 650 mg 03/23/25 20:55 Acetaminophen 325 Mg Tablet PO 04/22/25 20:54 Q6H PRN PAIN SCALE 1-3 (mild Acetaminophen 650 mg 03/23/25 20:55 Acetaminophen 325 Mg Tablet PO 04/22/25 20:54 Q6H PRN Fever >100.4 Hydrocodone Bitart/Acetaminophen 1 tab 03/23/25 20:55 03/23/25 23:03 Hydrocodone/Apap 10/325 Tab PO 03/28/25 20:54 1 tab Q4HR PRN Administration PAIN SCALE 7-10 (Severe Albuterol/Ipratropium 3 ml 03/23/25 20:55 Albuterol/Ipratropium (Duoneb) Rt Pearl 3 Ml Nebu INH 04/22/25 20:54 Q6HRRT PRN Wheezing Amlodipine Besylate 10 mg 03/24/25 09:00 03/26/25 08:43 Amlodipine Besylate 5 Mg Tablet PO 04/23/25 08:59 10 mg QDAY BRENDA Administration Diazepam 10 mg 03/24/25 09:00 03/26/25 08:42 Diazepam 5 Mg Tablet PO 03/29/25 08:59 10 mg On Hold: 03/26/25 09:55 DAILY BRENDA Administration Heparin Sodium (Porcine) 5,000 unit 03/23/25 21:00 03/26/25 08:44 Heparin Sod Inj 5000 Unit/Ml Vial SC 04/06/25 20:59 5,000 unit BID BRENDA Administration Ceftriaxone Sodium/Dextrose 1 gm in 50 mls @ 100 mls/hr 03/24/25 09:00 03/26/25 09:17 Rocephin/D5w 1gm Iv Premix IV 03/31/25 08:59 Infused QDAY BRENDA Infusion Azithromycin 250 mg/ Sodium 250 mls @ 250 mls/hr 03/25/25 09:00 03/26/25 09:17 Chloride IV 04/01/25 08:59 250 mls/hr QDAY BRENDA Administration Sodium Chloride 1,000 mls @ 30 mls/hr 03/23/25 21:00 03/25/25 08:23 Ns IV 04/22/25 20:59 Infused .Q24H BRENDA Infusion Potassium Phosphate 15 mmol in 250 mls @ 62.5 mls/hr 03/26/25 08:23 03/26/25 09:17 Pot Phos 15 Mmol In Ns 250 Ml IV 03/26/25 12:22 62.5 mls/hr X1 ONE Administration Lisinopril 20 mg 03/26/25 10:00 03/26/25 10:35 Lisinopril 20 Mg Tablet PO 04/25/25 09:59 20 mg QDAY BRENDA Administration Multivitamins 1 tab 03/24/25 09:00 03/26/25 08:43 Multivitamins Tablet PO 04/23/25 08:59 1 tab QDAY BRENDA Administration Ondansetron HCl 4 mg 03/23/25 20:55 Ondansetron Inj 2 Mg/Ml Inj 2 Ml IVP 04/22/25 20:54 Q6H PRN NAUSEA OR VOMITING Protocol Oxycodone/Acetaminophen 1 tab 03/23/25 20:55 Oxycodone/Apap 5/325 Tablet PO 03/28/25 20:54 Q6H PRN PAIN SCALE 4-6 (Moderate Pantoprazole Sodium 40 mg 03/23/25 21:00 03/26/25 08:43 Pantoprazole Inj 40 Mg Vial IVP 04/22/25 20:59 40 mg QDAY BRENDA Administration Thiamine HCl 100 mg 03/24/25 09:00 03/26/25 08:43 Thiamine 100 Mg Tablet PO 04/23/25 08:59 100 mg QDAY BRENDA Administration Thyroid 60 mg 03/24/25 09:00 03/26/25 08:45 Thyroid 30 Mg Tablet PO 04/23/25 08:59 60 mg QDAY BRENDA Administration Plan This is a 84-year-old female with PMHx of hypothyroidism, HTN, COPD, chronic back pain, presenting to the ED with acute altered mental status admitted for acute encephalopathy work up. #Acute Encephalopathy 08/21 #Community Acquired PNA #E. coli UTI #Hospital delirium Presented with acute changes mental status starting 03/23/25. No focal neurological deficits subjectively or on exam. Head CT was negative for acute pathology. Symptoms most likely related to infection given leukocytosis and pneumonia as seen on imaging plus UTI based on UA. Currently afebrile, satting well on room air. She received a total of 2 L IV fluids. Mentation overall improving. Leukocytosis improved to 8.8. Blood cultures negative. -Urine cultures grew Ecoli which was pansensitive -Will continue with Rocephin and Azithromycin -Patient will need home with home health upon discharge -Due to patient's ongoing hospital [place] versus possible undiagnosed chronic worsening dementia, will consult neurology for further recommendations -Neurology at this time recommended EEG -Wrist restraints as needed -Reorientation frequently -Held patient's home diazepam 10 mg daily, received last dose today, 03/26/2025 #Right full thickness rotator cuff tear Complains of chronic right arm pain, unable to lift her arm more than 30 degree secondary to pain. No bony deformity noted on exam, however exam was limited secondary to pain during active motion. Right shoulder x-ray showed rotator cuff tear. She is exhibiting good movement with no pain. - Right arm sling - Will continue with pain control - Follow up outpatient with orthopedic surgeon #Chronic caloric malnutrition #Underweight BMI of 14 BMI significantly low, appears cachectic on exam. Reports unintentional weight loss, about 4 lbs unintentional weight loss, about 4 lbs over the last 2 weeks. Although appetite seems to be normal. Patient's unintentional weight losss could be 2/2 poor oral intake vs malignancy in the setting of incidental masses found in the liver and lung. ? Continue daily Thiamine and multivitamins. ? Consulted registered dietitian. ? Replete electrolytes as needed. - Patient will need to follow up outpatient with heme-onc for further work-up and management #COPD Diagnosed more than 10 years ago. Likely related to chronic cigarette smoking. Denies wheezing or shortness of breath. Low suspicion for COPD exacerbation Not on oxygen at home CT chest shows COPD changes of hyper extended lungs - Titrate oxygen saturation to 88-92% ? DuoNebs PRN #Hypothyroism #HTN BP slightly elevated. Thyroid function within acceptable range. TSH: 0.12, free T4: 0.98 ? Continue home thyroid 60 mg daily ? Continue home Amloidipine 10 mg daily #Incidental liver lesion #Incidental pulmonary nodule 19 mm enhancing lesion in the upper right liver lobe seen on CT abdomen. 4 mm pulmonary nodule in the right lower lobe seen on CT chest. Patient was informed about these incidental findings - Advised patient to follow up with their PCP upon discharge for repeat imaging and further management Health maintenance Diet: Regular diet GI prophylaxis: PROTONIX DVT prophylaxis: HEPARIN subcu Antibiotics: CEFTRIAXONE, AZITHROMYCIN CODE STATUS: DNR Disposition: Treating acute encephalopathy, caloric malnutrition, and rotator cuff tear; Pending neuro recs Patient's plan and care discussed with my attending, Dr. Paolo Kaiser MD PGY-3 Attending Provider Attestation/Addendum I have examined the patient, reviewed labs and imaging findings, discussed the case with the resident(s), and reviewed entered orders. I agree with the plan of care as outlined in this note, with these additional summaries/recommendations: Patient seen at bedside. She continues to be encephalopathic and on soft bilateral wrist restraints. Patient's son at bedside today. Patient admitted for acute encephalopathy originally secondary to infectious etiology. Patients mental status originally improved although patient likely developed delirium/dementia related psychosis. Patient's son reports he has noted a stepwise decline in mental status prior to hospitalization. Patient has never been formally diagnosed with dementia. Per patient's son she is pending outpatient referral to neurology. We will continue frequent reorientation. Encouraged patient's son to visit is much as possible. We will place patient's daily diazepam on hold for now. Patient diagnosed with community-acquired pneumonia and urinary tract infection. Continue IV antibiotics. Urine culture grew E. coli. Blood cultures show no growth at 48 hours. Tylenol as needed for fever. Patient was also noted to have 4 mm right lower lung nodule and repeat imaging in 6 months for continued surveillance and management. CT of abdomen and pelvis revealed 19 mm enhancing lesion in right upper lobe liver. Recommend outpatient elective MRI. Patient also endorsed right shoulder pain on admission although this does appear more chronic in nature. Patient denies any significant right shoulder pain at this time and has moderately reduced range of motion. Imaging revealed obliteration of the space between the acronym and humeral head seen with full thickness rotator cuff tear. Continue pain management and sling ordered. Patient will need to follow-up outpatient with orthopedics for further interventions. Breathing treatments as needed for COPD. Continue home levothyroxine. Patient updated on the plan and in agreement. All questions answered to satisfaction. Please see residents note for additional details and management. Dr. Paolo MD
--- NOTE | 2025-03-26 15:22 | PC.SS ---
Rounding note: patient is still confused, pending neurology consult.
[2025-03-26] MEDS: SODIUM CHLORIDE 0.9% 1000 ML 1,000 ML 30 ML IV (22:40)
--- NOTE | 2025-03-26 23:30 | PD.EVENT ---
Documentation for date of: 03/26/25
--- NOTE | 2025-03-26 23:34 | ESPR_ITS ---
Documentation for date of: 03/26/25 Subjective Subjective Interval history: patient was seen in [facility] today with her family at the bedside, eating dinner herself. No new symptoms reported. Answering questions appropriately. Exam - Neurology Vital Signs Temp Pulse Resp BP Pulse Ox O2 Del Method O2 Flow Rate 97.0 F 63 17 126/75 95 Room Air 2 03/26/25 20:00 03/26/25 20:27 03/26/25 20:27 03/26/25 20:00 03/26/25 20:00 03/26/25 20:00 03/25/25 00:00 Narrative Exam GENERAL APPEARANCE: well developed, thin built female in mild distress. HEENT: Normocephalic, atraumatic, extraocular movements intact. Pupils: Equal reacting to light NECK: Supple, no JVD or bruits. Parotid enlargement noted on the left CARDIOVASULAR: Heart: S1, S2 heard, regular without S3-S4 or murmur no rubs or gallops. LUNGS/CHEST: Clear to auscultation bilaterally. No rails, rhonchi, or wheezing. Normal inspection. ABDOMEN: Soft, nontender, with normal bowel sounds. No pulsatile masses. No rebound, rigidity, or guarding. Normal inspection and palpation. EXTREMITIES: Normal inspection and palpation. No edema, clubbing or cyanosis. SKIN: Warm and dry without rashes. Normal inspection. MUSCULOSKELETAL: No cervical, thoracic, lumbar or midline bony tenderness. Normal inspection. NEURO: aaox3, speech and language: normal, no aphasia/dysarthria, cranial nerves: 2-12 intact, moves all 4 extremities, gait: not tested. No meningeal irritation noted. PSYCHIATRIC: mood and affect: normal. Objective Labs 03/27/25 05:02 03/27/25 05:02 Labs: Laboratory Results - last 24 hr 03/26/25 05:25 WBC 5.1 RBC 3.92 L Hgb 12.9 Hct 38.5 MCV 98 MCH 32.9 MCHC 33.5 RDW Std Deviation 43.6 Plt Count 256 D Neut % (Auto) 63 Lymph % (Auto) 22 [place] % (Auto) 11 Eos % (Auto) 3 Baso % (Auto) 0 Neut # (Auto) 3.2 Lymph # (Auto) 1.1 [place] # (Auto) 0.6 Eos # (Auto) 0.2 Baso # (Auto) 0.0 Immature Gran # (Auto) 0.01 H Absolute Nucleated RBC 0.00 Immature Gran % 0 Nucleated RBC % 0 Sodium 138 Potassium 3.7 D Chloride 102 Carbon Dioxide 26.2 Anion Gap 10 BUN 6 L Creatinine 0.5 L Estim Creat Clear Calc 50.9 L eGFR > 60 BUN/Creatinine Ratio 12 Glucose 113 H Calculated Osmolality 274 L Calcium 9.5 Corrected Calcium 9.6 Phosphorus 2.8 Magnesium 2.0 Total Bilirubin 0.2 L AST 21 ALT < 7 L Alkaline Phosphatase 59 Total Protein 6.5 Albumin 3.9 Globulin 2.6 Albumin/Globulin Ratio 1.5 ABG Interpretation ABG results: 03/23/25 14:41 ABG pH 7.43 ABG pCO2 33 ABG pO2 98 ABG HCO3 22 ABG O2 Saturation 99 H ABG Base Excess -2 Assessment & Plan Assessment and plan (1) AMS (altered mental status): Status: Acute Assessment and plan: resolving, close to baseline. FU with EEG and MRI brain (2) Hypertension: Status: Chronic Assessment and plan: continue current mgt (3) Pneumonia: Status: Acute Assessment and plan: seen in CT chest on IV antibiotics as per primary team.
[2025-03-27] VITALS (11 sets, daily range): BP systolic 117–151; BP diastolic 59–73; PULSE 70–96; RESP 15–98; TEMP 35.9–36.2; O2SAT 96–98
[2025-03-27 05:35] LABS: Basophils # (Auto) 0.0 Thou/mm3 (0.0-0.2); Basophils % (Auto) 0 % (0-2.5); Eosinophils # (Auto) 0.3 Thou/mm3 (0.0-0.5); Eosinophils % (Auto) 7 % (0-10); Hematocrit 37.3 % (36.0-46.0); Hemoglobin 12.4 g/dL (12.0-16.0); Immature Granulocytes Auto 0.01 Thou/mm3 (0.00-0.00); Lymphocytes # (Auto) 1.8 Thou/mm3 (1.0-4.8); Lymphocytes % (Auto) 38 % (10-50); Mean Corpuscular HGB Conc 33.2 g/dl (31.0-37.0); Mean Corpuscular Hemoglobin 32.8 pg (25.0-35.0); Mean Corpuscular Volume 99 fL (80-100); Monocytes # (Auto) 0.4 Thou/mm3 (0.0-0.8); Monocytes % (Auto) 9 % (0-12); Neutrophils # (Auto) 2.1 Thou/mm3 (1.8-7.7); Neutrophils % (Auto) 45 % (37-80); Nucleated Red Blood Cell # 0.00 Thou/mm3 (0.00-0.00); Nucleated Red Blood Cell % 0 /100 WBC (0); Platelet Count 246 Thou/mm3 (140-440); RDW Standard Deviation 44.3 fL (36.4-46.3); Red Blood Count 3.78 Miln/mm3 (4.00-5.20); White Blood Count 4.7 Thou/mm3 (3.6-11.0)
[2025-03-27 06:25] LABS: Alanine Aminotransferase 20 U/L (10-49); Albumin, Serum 3.6 gm/dL (3.4-4.8); Albumin/Globulin Ratio 1.5 (1.2-2.2); Alkaline Phosphatase 61 U/L (46-116); Anion Gap 11 (7-16); Aspartate Amino Transferase 26 U/L (0-34); BUN/Creatinine Ratio 18 Ratio (12-20); Bilirubin,Total < 0.2 mg/dL (0.3-1.2); Blood Urea Nitrogen 9 mg/dL (9-23); Calcium 9.6 mg/dL (8.3-10.6); Calcium (Corrected) 9.9 mg/dL (8.5-10.1); Carbon Dioxide 23.3 mMol/L (20.0-31.0); Chloride 105 mMol/L (98-107); Creatinine (Component) 0.5 mg/dL (0.6-1.3); Estimated Creatinine Clearance 50.9 mL/min (>60); Globulin 2.4 gm/dL (2.3-3.5); Glucose 100 mg/dL (74-106); Magnesium 1.9 mg/dL (1.6-2.6); Osmolality,Calculated 276 (275-295); Phosphorous 3.8 mg/dL (2.4-5.1); Potassium 4.3 mMol/L (3.4-5.1); Sodium 139 mMol/L (136-145); Total Protein 6.0 gm/dL (5.7-8.2); eGFR > 60 See Note
[2025-03-27] MEDS: AZITHROMYCIN INJ 250 MG in SODIUM CHLORIDE 0.9% 250 ML 250 ML IV (09:42)
[2025-03-27] MEDS: cefTRIAXone/D5w 1gm IV premix 1 GM/50 ML BAG IV (09:42)
[2025-03-27] MEDS: MULTIVITAMINS TABLET 1 TAB PO (09:43)
[2025-03-27] MEDS: HEPARIN SOD INJ 5000 UNIT/ML VIAL SC ×2 (09:45→20:11)
[2025-03-27] MEDS: THYROID 30 MG TABLET 60 MG PO (09:45)
[2025-03-27] MEDS: THIAMINE 100 MG TABLET PO (09:46)
--- NOTE | 2025-03-27 17:12 | ESPR_ITS ---
Documentation for date of: 03/27/25 Subjective Subjective Interval history: This is a 84-year-old female with PMHx of hypothyroidism, HTN, COPD, chronic back pain, presenting to the ED with acute altered mental status. Per chart review, patient resides with her son. She was found laying in her bed with her legs extended on wheelchair. Granddaughter noted that patient was slightly confused, difficult to arouse and not making sense when she was asked questions. Patient herself denies any changes in mentation, she she was found to be alert oriented x 3 at the time of the encounter, denied any current complaints other than chronic back pain. Denied headaches, fever, chills, fall or trauma, syncope or presyncope, chest pain, shortness of breath, palpitations, abdominal pain, N/V/D/C, dysuria, urinary urgency or frequency, or hematuria on the day of admission. Son informed that patient has been losing weight from past couple of weeks more than 4 pounds without loss of appetite. Additionally, reported to have right arm pain with inability to lift arm likely chronic. In the ED, patient was afebrile normotensive. Labs were significant for mild leukocytosis. ABGs were unremarkable. Chemistry panel was unremarkable. TSH 0.12, free T4 0.98. UA showed +1 bacteria, positive nitrate +2 blood. U tox positive for opiates and benzodiazepines.EKG shows sinus rhythm without acute ST changes. Head CT was negative for acute pathology.CXR showed COPD and early pneumonia of both bases. CT abdomen showed hepatomegaly, colonic diverticulosis without diverticulitis, advanced degenerative disc disease at L4-L5, 90 mm enhancing lesion in the upper right liver lobe. CT chest showed COPD with prominent hyperexpansion, bibasilar pneumonia, 4 mm nodule of the right lower lobe, severe osteopenia with moderate chronic compression of T3 vertebral body.Right shoulder x-ray showed rotator cuff tear. PMH:Hypothyroidism, HTN, COPD, chronic back pain. PSH: Nonsignificant Allergies: ASPIRIN causes GI upset FH: Nonsignificant SH:Chronic smoker, more than [id number]. Occasional alcohol drink. Denies drug or marijuana use. Home medications:PREMARIN 0.625 mg daily, NORCO as needed for pain, DIAZEPAM 10 mg daily PRN for leg pain, ARMOUR THYROID 60 mg daily, AMLODIPINE 10 mg daily. 03/27/25: Patient was seen and examined at the bedside. Patient was alert and oriented x 3 and appears to have cough. She denied any symptoms of dizziness, headache, nausea, vomiting or chest pain. Patient was seen off restraints. Delirium seems to be improving. Recommended to start scheduled Seroquel 25 mg at bedtime which appears to be helpful in the setting of advanced dementia. EEG was normal. Exam Vital Signs Temp Pulse Resp BP Pulse Ox O2 Del Method O2 Flow Rate 97.0 F 79 17 124/59 L 98 Room Air 2 03/27/25 15:57 03/27/25 15:57 03/27/25 15:57 03/27/25 15:57 03/27/25 15:57 03/27/25 15:57 03/25/25 00:00 Narrative Exam GENERAL APPEARANCE: AxOx4, frail and cachectic in no acute distress. HEENT: NC, AT. MMM. EOMI, clear conjunctiva, oropharynx clear. NECK: Supple without lymphadenopathy. No stiffness or restricted ROM. HEART: Normal rate and regular rhythm, normal S1/S2, no m/r/g LUNGS: CTAB, moving air well. No crackles or wheezes are heard. ABDOMEN: Soft, nontender, nondistended with good bowel sounds heard. BACK: No CVAT, no obvious deformity. EXTREMITIES: Without cyanosis, clubbing or edema. NEUROLOGICAL: Grossly nonfocal. Alert and oriented, moving all 4 extremities. CN not formally tested but appear grossly intact. Observed to ambulate with normal gait. Skin: Warm and dry without any rash. Psych: Appropriate mood and affect Objective Labs 03/28/25 05:41 03/28/25 05:41 Labs: Laboratory Results - last 24 hr 03/27/25 05:02 WBC 4.7 RBC 3.78 L Hgb 12.4 Hct 37.3 MCV 99 MCH 32.8 MCHC 33.2 RDW Std Deviation 44.3 Plt Count 246 Neut % (Auto) 45 Lymph % (Auto) 38 [place] % (Auto) 9 Eos % (Auto) 7 Baso % (Auto) 0 Neut # (Auto) 2.1 Lymph # (Auto) 1.8 [place] # (Auto) 0.4 Eos # (Auto) 0.3 Baso # (Auto) 0.0 Immature Gran # (Auto) 0.01 H Absolute Nucleated RBC 0.00 Immature Gran % 0 Nucleated RBC % 0 Sodium 139 Potassium 4.3 D Chloride 105 Carbon Dioxide 23.3 Anion Gap 11 BUN 9 Creatinine 0.5 L Estim Creat Clear Calc 50.9 L eGFR > 60 BUN/Creatinine Ratio 18 Glucose 100 Calculated Osmolality 276 Calcium 9.6 Corrected Calcium 9.9 Phosphorus 3.8 Magnesium 1.9 Total Bilirubin < 0.2 L AST 26 ALT 20 Alkaline Phosphatase 61 Total Protein 6.0 Albumin 3.6 Globulin 2.4 Albumin/Globulin Ratio 1.5 ABG Interpretation ABG results: 03/23/25 14:41 ABG pH 7.43 ABG pCO2 33 ABG pO2 98 ABG HCO3 22 ABG O2 Saturation 99 H ABG Base Excess -2 Quality Measures Quality Measures VTE prophylaxis (Heparin sc) Advance care planning discussed with:: other Assessment & Plan Assessment Current Active Medications: Generic Name Dose Route Start Last Admin Trade Name Freq PRN Reason Stop Dose Admin Acetaminophen 650 mg 03/23/25 20:55 Acetaminophen 325 Mg Tablet PO 04/22/25 20:54 Q6H PRN PAIN SCALE 1-3 (mild Acetaminophen 650 mg 03/23/25 20:55 Acetaminophen 325 Mg Tablet PO 04/22/25 20:54 Q6H PRN Fever >100.4 Hydrocodone Bitart/Acetaminophen 1 tab 03/23/25 20:55 03/23/25 23:03 Hydrocodone/Apap 10/325 Tab PO 03/28/25 20:54 1 tab Q4HR PRN Administration PAIN SCALE 7-10 (Severe Albuterol/Ipratropium 3 ml 03/23/25 20:55 Albuterol/Ipratropium (Duoneb) Rt Pearl 3 Ml Nebu INH 04/22/25 20:54 Q6HRRT PRN Wheezing Amlodipine Besylate 10 mg 03/24/25 09:00 03/27/25 09:44 Amlodipine Besylate 5 Mg Tablet PO 04/23/25 08:59 10 mg QDAY BRENDA Administration Heparin Sodium (Porcine) 5,000 unit 03/23/25 21:00 03/27/25 09:45 Heparin Sod Inj 5000 Unit/Ml Vial SC 04/06/25 20:59 5,000 unit BID BRENDA Administration Ceftriaxone Sodium/Dextrose 1 gm in 50 mls @ 100 mls/hr 03/24/25 09:00 03/27/25 09:42 Rocephin/D5w 1gm Iv Premix IV 03/31/25 08:59 100 mls/hr QDAY BRENDA Administration Azithromycin 250 mg/ Sodium 250 mls @ 250 mls/hr 03/25/25 09:00 03/27/25 09:42 Chloride IV 04/01/25 08:59 250 mls/hr QDAY BRENDA Administration Lisinopril 20 mg 03/26/25 10:00 03/27/25 09:43 Lisinopril 20 Mg Tablet PO 04/25/25 09:59 20 mg QDAY BRENDA Administration Multivitamins 1 tab 03/24/25 09:00 03/27/25 09:43 Multivitamins Tablet PO 04/23/25 08:59 1 tab QDAY BRENDA Administration Ondansetron HCl 4 mg 03/23/25 20:55 Ondansetron Inj 2 Mg/Ml Inj 2 Ml IVP 04/22/25 20:54 Q6H PRN NAUSEA OR VOMITING Protocol Oxycodone/Acetaminophen 1 tab 03/23/25 20:55 Oxycodone/Apap 5/325 Tablet PO 03/28/25 20:54 Q6H PRN PAIN SCALE 4-6 (Moderate Pantoprazole Sodium 40 mg 03/23/25 21:00 03/27/25 09:45 Pantoprazole Inj 40 Mg Vial IVP 04/22/25 20:59 40 mg QDAY BRENDA Administration Quetiapine Fumarate 25 mg 03/27/25 21:00 Quetiapine Fumarate 25 Mg Tablet PO 04/26/25 20:59 HS BRENDA Thiamine HCl 100 mg 03/24/25 09:00 03/27/25 09:46 Thiamine 100 Mg Tablet PO 04/23/25 08:59 100 mg QDAY BRENDA Administration Thyroid 60 mg 03/24/25 09:00 03/27/25 09:45 Thyroid 30 Mg Tablet PO 04/23/25 08:59 60 mg QDAY BRENDA Administration Plan This patient is a 84-year-old female with past medical history of hypothyroidism, hypertension, chronic back pain presented to the ED with altered mental status admitted for acute encephalopathy workup. #Acute encephalopathy likely multifactorial,resolving #Hospital-acquired delirium versus dementia? #Community-acquired pneumonia #E. coli UTI Patient presented with acute mental status change on 03/23/25. No focal neurological deficit was seen on examination. Head CT showed no acute change. Symptoms were attributed to infection given leukocytosis and pneumonia as well as UTI based on UA. Patient is currently afebrile saturating well on room air. Mental status was deteriorating at night on 03/25. Urine culture grew E. coli pansensitive Plan: EEG was normal Cont with seroquel 25 mg HS due to patients advance dementia Continue Rocephin and azithromycin Off restraints Frequent reorientation with delirium precautions Hold off patient's home diazepam due to confusion Right full-thickness rotator cuff tear - Continue right arm sling with pain control and HH PT #Chronic caloric malnutrition #Underweight BMI 14 #History of COPD #History of hypothyroidism #History of hypertension #Incidental liver lesion #Incidental pulmonary nodule Rest of the management as per primary care team. Plan of care discussed with neurologist, Dr Awilda Guo MD, PGY 3 Attending Provider Attestation/Addendum I did the virtual review of the chart and I agreed with resident's findings, assessment and plan of care. Imp: AMS: likely metabolic/hospitalization induced delirium/Mild dementia Plan and recs: EEG and CT : unremarkable Consider Seroquel at night for . Will hold off on LP for now.
--- NOTE | 2025-03-27 18:02 | ESPR_ITS ---
Documentation for date of: 03/27/25 Subjective Subjective Interval history: Patient examined at bedside. No events overnight. Vitals are stable, patient is oriented to self and time. Forgetful to where she is. Son was at bedside stated that this typically does not occur while at home. Neurology was consulted recommending to start Seroquel 25 mg at bedtime for advancing dementia. Plan to remove restraints and see if patient tolerates. Continuing IV antibiotics for pneumonia and UTI. Neurology completed EEG with normal read. Plan to discharge patient next 24 hours. Exam Vital Signs Temp Pulse Resp BP Pulse Ox O2 Del Method O2 Flow Rate 97.0 F 79 17 124/59 L 98 Room Air 2 03/27/25 15:57 03/27/25 15:57 03/27/25 15:57 03/27/25 15:57 03/27/25 15:57 03/27/25 15:57 03/25/25 00:00 Narrative Exam General Appearance: Pt is an elderly, frail woman in mild acute distress restless on hospital bed. Laying comfortably in bed. HEENT: NC/AT, no scleral icterus, no conjunctival pallor, MMM Lungs: CTAB, no wheezes or crackles appreciated CVS: RRR, S1/S2 heard, no murmurs or rubs appreciated ABD: Soft, non-tender, non-distended, BS + in all 4 quadrants EXT: no deformity/edema/lesions/cyanosis/clubbing, radial pulses 2+ BL, DP pulses 2 + BL SKIN: Skin exam normal without any rashes. Neuro: A&O x 1 to name. No gross neurological deficits. Motor and sensory grossly intact in B/L UL and LL except for right upper extremity, able to only lift arm to about 30 degrees. No wrist restraints. Psych: Appropriate mood and affect Objective Labs 03/27/25 05:02 03/27/25 05:02 Labs: Laboratory Results - last 24 hr 03/27/25 05:02 WBC 4.7 RBC 3.78 L Hgb 12.4 Hct 37.3 MCV 99 MCH 32.8 MCHC 33.2 RDW Std Deviation 44.3 Plt Count 246 Neut % (Auto) 45 Lymph % (Auto) 38 [place] % (Auto) 9 Eos % (Auto) 7 Baso % (Auto) 0 Neut # (Auto) 2.1 Lymph # (Auto) 1.8 [place] # (Auto) 0.4 Eos # (Auto) 0.3 Baso # (Auto) 0.0 Immature Gran # (Auto) 0.01 H Absolute Nucleated RBC 0.00 Immature Gran % 0 Nucleated RBC % 0 Sodium 139 Potassium 4.3 D Chloride 105 Carbon Dioxide 23.3 Anion Gap 11 BUN 9 Creatinine 0.5 L Estim Creat Clear Calc 50.9 L eGFR > 60 BUN/Creatinine Ratio 18 Glucose 100 Calculated Osmolality 276 Calcium 9.6 Corrected Calcium 9.9 Phosphorus 3.8 Magnesium 1.9 Total Bilirubin < 0.2 L AST 26 ALT 20 Alkaline Phosphatase 61 Total Protein 6.0 Albumin 3.6 Globulin 2.4 Albumin/Globulin Ratio 1.5 ABG Interpretation ABG results: 03/23/25 14:41 ABG pH 7.43 ABG pCO2 33 ABG pO2 98 ABG HCO3 22 ABG O2 Saturation 99 H ABG Base Excess -2 Quality Measures Quality Measures none Advance care planning discussed with:: child Assessment & Plan Assessment Current Active Medications: Generic Name Dose Route Start Last Admin Trade Name Freq PRN Reason Stop Dose Admin Acetaminophen 650 mg 03/23/25 20:55 Acetaminophen 325 Mg Tablet PO 04/22/25 20:54 Q6H PRN PAIN SCALE 1-3 (mild Acetaminophen 650 mg 03/23/25 20:55 Acetaminophen 325 Mg Tablet PO 04/22/25 20:54 Q6H PRN Fever >100.4 Hydrocodone Bitart/Acetaminophen 1 tab 03/23/25 20:55 03/23/25 23:03 Hydrocodone/Apap 10/325 Tab PO 03/28/25 20:54 1 tab Q4HR PRN Administration PAIN SCALE 7-10 (Severe Albuterol/Ipratropium 3 ml 03/23/25 20:55 Albuterol/Ipratropium (Duoneb) Rt Pearl 3 Ml Nebu INH 04/22/25 20:54 Q6HRRT PRN Wheezing Amlodipine Besylate 10 mg 03/24/25 09:00 03/27/25 09:44 Amlodipine Besylate 5 Mg Tablet PO 04/23/25 08:59 10 mg QDAY BRENDA Administration Heparin Sodium (Porcine) 5,000 unit 03/23/25 21:00 03/27/25 09:45 Heparin Sod Inj 5000 Unit/Ml Vial SC 04/06/25 20:59 5,000 unit BID BRENDA Administration Ceftriaxone Sodium/Dextrose 1 gm in 50 mls @ 100 mls/hr 03/24/25 09:00 03/27/25 09:42 Rocephin/D5w 1gm Iv Premix IV 03/31/25 08:59 100 mls/hr QDAY BRENDA Administration Azithromycin 250 mg/ Sodium 250 mls @ 250 mls/hr 03/25/25 09:00 03/27/25 09:42 Chloride IV 04/01/25 08:59 250 mls/hr QDAY BRENDA Administration Lisinopril 20 mg 03/26/25 10:00 03/27/25 09:43 Lisinopril 20 Mg Tablet PO 04/25/25 09:59 20 mg QDAY BRENDA Administration Multivitamins 1 tab 03/24/25 09:00 03/27/25 09:43 Multivitamins Tablet PO 04/23/25 08:59 1 tab QDAY BRENDA Administration Ondansetron HCl 4 mg 03/23/25 20:55 Ondansetron Inj 2 Mg/Ml Inj 2 Ml IVP 04/22/25 20:54 Q6H PRN NAUSEA OR VOMITING Protocol Oxycodone/Acetaminophen 1 tab 03/23/25 20:55 Oxycodone/Apap 5/325 Tablet PO 03/28/25 20:54 Q6H PRN PAIN SCALE 4-6 (Moderate Pantoprazole Sodium 40 mg 03/23/25 21:00 03/27/25 09:45 Pantoprazole Inj 40 Mg Vial IVP 04/22/25 20:59 40 mg QDAY BRENDA Administration Quetiapine Fumarate 25 mg 03/27/25 21:00 Quetiapine Fumarate 25 Mg Tablet PO 04/26/25 20:59 [facility] Thiamine HCl 100 mg 03/24/25 09:00 03/27/25 09:46 Thiamine 100 Mg Tablet PO 04/23/25 08:59 100 mg QDAY BRENDA Administration Thyroid 60 mg 03/24/25 09:00 03/27/25 09:45 Thyroid 30 Mg Tablet PO 04/23/25 08:59 60 mg QDAY BRENDA Administration Plan This is a 84-year-old female with PMHx of hypothyroidism, HTN, COPD, chronic back pain, presenting to the ED with acute altered mental status admitted for acute encephalopathy work up. #Acute Encephalopathy 2/2 #Community Acquired PNA #E. coli UTI #Hospital delirium Presented with acute changes mental status starting 03/23/25. No focal neurological deficits subjectively or on exam. Head CT was negative for acute pathology. Symptoms most likely related to infection given leukocytosis and pneumonia as seen on imaging plus UTI based on UA. Currently afebrile, satting well on room air. She received a total of 2 L IV fluids. Mentation overall improving. Leukocytosis improved to 8.8. Blood cultures negative. -Urine cultures grew Ecoli which was pansensitive -Will continue with Rocephin and Azithromycin -Patient will need home with home health upon discharge -Urology consulted, appreciate recommendations--start Seroquel 25 mg at bedtime for advancing dementia - EEG was negative for any seizure-like activity - Avoid wrist restraints in anticipation for discharge tomorrow -Reorientation frequently -Held patient's home diazepam 10 mg daily, received last dose , 03/26/2025 #Right full thickness rotator cuff tear Complains of chronic right arm pain, unable to lift her arm more than 30 degree secondary to pain. No bony deformity noted on exam, however exam was limited secondary to pain during active motion. Right shoulder x-ray showed rotator cuff tear. She is exhibiting good movement with no pain. - Right arm sling - Will continue with pain control - Follow up outpatient with orthopedic surgeon #Chronic caloric malnutrition #Underweight BMI of 14 BMI significantly low, appears cachectic on exam. Reports unintentional weight loss, about 4 lbs unintentional weight loss, about 4 lbs over the last 2 weeks. Although appetite seems to be normal. Patient's unintentional weight losss could be 2/2 poor oral intake vs malignancy in the setting of incidental masses found in the liver and lung. ? Continue daily Thiamine and multivitamins. ? Consulted registered dietitian. ? Replete electrolytes as needed. - Patient will need to follow up outpatient with heme-onc for further work-up and management #COPD Diagnosed more than 10 years ago. Likely related to chronic cigarette smoking. Denies wheezing or shortness of breath. Low suspicion for COPD exacerbation Not on oxygen at home CT chest shows COPD changes of hyper extended lungs - Titrate oxygen saturation to 88-92% ? DuoNebs PRN #Hypothyroism #HTN BP slightly elevated. Thyroid function within acceptable range. TSH: 0.12, free T4: 0.98 ? Continue home thyroid 60 mg daily ? Continue home Amloidipine 10 mg daily #Incidental liver lesion #Incidental pulmonary nodule 19 mm enhancing lesion in the upper right liver lobe seen on CT abdomen. 4 mm pulmonary nodule in the right lower lobe seen on CT chest. Patient was informed about these incidental findings - Advised patient to follow up with their PCP upon discharge for repeat imaging and further management Health maintenance Diet: Regular diet GI prophylaxis: PROTONIX DVT prophylaxis: HEPARIN subcu Antibiotics: CEFTRIAXONE, AZITHROMYCIN CODE STATUS: DNR Disposition: Treating acute encephalopathy, caloric malnutrition, and rotator cuff tear Patient's plan and care discussed with my attending, Dr. Paolo Cisse, PGY2 Attending Provider Attestation/Addendum I have examined the patient, reviewed labs and imaging findings, discussed the case with the resident(s), and reviewed entered orders. I agree with the plan of care as outlined in this note, with these additional summaries/recommendations: Patient seen at bedside. Patient remained in bilateral soft wrist restraints overnight. Today she appears less delirious and is following simple instructions at this time. I will discontinue wrist restraints for now and monitor how patient does. If patient's mental status remains stable then anticipate discharge in the next 24 to 48 hours. Patient admitted for acute encephalopathy originally secondary to infectious etiology. Patients mental status originally improved although patient likely developed delirium/dementia related psychosis. Patient's son reports he has noted a stepwise decline in mental status prior to hospitalization. Patient has never been formally diagnosed with dementia. Per patient's son she is pending outpatient referral to neurology. We will continue frequent reorientation. Encouraged patient's son to visit is much as possible. We will place patient's daily diazepam on hold for now. Patient diagnosed with community-acquired pneumonia and urinary tract infection. Continue IV antibiotics. Urine culture grew E. coli. Blood cultures show no growth at 48 hours. Tylenol as needed for fever. Patient was also noted to have 4 mm right lower lung nodule and repeat imaging in 6 months for continued surveillance and management. CT of abdomen and pelvis revealed 19 mm enhancing lesion in right upper lobe liver. Recommend outpatient elective MRI. Patient also endorsed right shoulder pain on admission although this does appear more chronic in nature. Patient denies any significant right shoulder pain at this time and has moderately reduced range of motion. Imaging revealed obliteration of the space between the acronym and humeral head seen with full thickness rotator cuff tear. Continue pain management and sling ordered. Patient will need to follow-up outpatient with orthopedics for further interventions. Breathing treatments as needed for COPD. Continue home levothyroxine. Patient updated on the plan and in agreement. All questions answered to satisfaction. Please see residents note for additional details and management. Dr. Paolo MD
[2025-03-28] VITALS (8 sets, daily range): BP systolic 123–140; BP diastolic 59–72; PULSE 71–78; RESP 14–19; TEMP 36.1–36.5; O2SAT 94–98
[2025-03-28 06:17] LABS: Basophils # (Auto) 0.0 Thou/mm3 (0.0-0.2); Basophils % (Auto) 0 % (0-2.5); Eosinophils # (Auto) 0.3 Thou/mm3 (0.0-0.5); Eosinophils % (Auto) 5 % (0-10); Hematocrit 32.0 % (36.0-46.0); Hemoglobin 10.6 g/dL (12.0-16.0); Immature Granulocytes Auto 0.01 Thou/mm3 (0.00-0.00); Lymphocytes # (Auto) 2.7 Thou/mm3 (1.0-4.8); Lymphocytes % (Auto) 54 % (10-50); Mean Corpuscular HGB Conc 33.1 g/dl (31.0-37.0); Mean Corpuscular Hemoglobin 33.2 pg (25.0-35.0); Mean Corpuscular Volume 100 fL (80-100); Monocytes # (Auto) 0.5 Thou/mm3 (0.0-0.8); Monocytes % (Auto) 9 % (0-12); Neutrophils # (Auto) 1.5 Thou/mm3 (1.8-7.7); Neutrophils % (Auto) 31 % (37-80); Nucleated Red Blood Cell # 0.00 Thou/mm3 (0.00-0.00); Nucleated Red Blood Cell % 0 /100 WBC (0); Platelet Count 231 Thou/mm3 (140-440); RDW Standard Deviation 45.8 fL (36.4-46.3); Red Blood Count 3.19 Miln/mm3 (4.00-5.20); White Blood Count 5.0 Thou/mm3 (3.6-11.0)
[2025-03-28 06:42] LABS: Alanine Aminotransferase 21 U/L (10-49); Albumin, Serum 3.0 gm/dL (3.4-4.8); Albumin/Globulin Ratio 1.6 (1.2-2.2); Alkaline Phosphatase 50 U/L (46-116); Anion Gap 10 (7-16); Aspartate Amino Transferase 22 U/L (0-34); BUN/Creatinine Ratio 20 Ratio (12-20); Bilirubin,Total < 0.2 mg/dL (0.3-1.2); Blood Urea Nitrogen 14 mg/dL (9-23); Calcium 8.9 mg/dL (8.3-10.6); Calcium (Corrected) 9.7 mg/dL (8.5-10.1); Carbon Dioxide 25.0 mMol/L (20.0-31.0); Chloride 107 mMol/L (98-107); Creatinine (Component) 0.7 mg/dL (0.6-1.3); Estimated Creatinine Clearance 36.4 mL/min (>60); Globulin 1.9 gm/dL (2.3-3.5); Glucose 90 mg/dL (74-106); Osmolality,Calculated 283 (275-295); Potassium 4.0 mMol/L (3.4-5.1); Sodium 142 mMol/L (136-145); Total Protein 4.9 gm/dL (5.7-8.2); eGFR > 60 See Note
[2025-03-28] MEDS: THYROID 30 MG TABLET 60 MG PO (09:12)
[2025-03-28] MEDS: THIAMINE 100 MG TABLET PO (09:15)
[2025-03-28] MEDS: MULTIVITAMINS TABLET 1 TAB PO (09:15)
[2025-03-28] MEDS: HEPARIN SOD INJ 5000 UNIT/ML VIAL SC (09:17)
[2025-03-28] MEDS: cefTRIAXone/D5w 1gm IV premix 1 GM/50 ML BAG IV (09:18)
[2025-03-28] MEDS: AZITHROMYCIN INJ 250 MG in SODIUM CHLORIDE 0.9% 250 ML 250 ML IV (09:19)
--- NOTE | 2025-03-28 16:34 | PD.RESPRO ---
Documentation for date of: 03/28/25 Subjective Subjective Interval history: Patient was seen and examined at the bedside. Patient appears to be alert and oriented family was also present at the bedside and was reassured that patient is doing markedly better from last couple of days. Scheduled Seroquel seems to be helpful for delirium. No overnight events reported. Patient is safe for discharge from neurology standpoint. Exam Vital Signs Temp Pulse Resp BP Pulse Ox O2 Del Method O2 Flow Rate 97.6 F 76 18 124/71 98 Room Air 2 03/28/25 15:20 03/28/25 15:20 03/28/25 15:20 03/28/25 15:20 03/28/25 15:20 03/28/25 15:20 03/25/25 00:00 Narrative Exam GENERAL APPEARANCE: AxOx4, frail and cachectic in no acute distress. HEENT: NC, AT. MMM. EOMI, clear conjunctiva, oropharynx clear. NECK: Supple without lymphadenopathy. No stiffness or restricted ROM. HEART: Normal rate and regular rhythm, normal S1/S2, no m/r/g LUNGS: CTAB, moving air well. No crackles or wheezes are heard. ABDOMEN: Soft, nontender, nondistended with good bowel sounds heard. BACK: No CVAT, no obvious deformity. EXTREMITIES: Without cyanosis, clubbing or edema. NEUROLOGICAL: Grossly nonfocal. Alert and oriented, moving all 4 extremities. CN not formally tested but appear grossly intact. Observed to ambulate with normal gait. Skin: Warm and dry without any rash. Psych: Appropriate mood and affect Objective Labs 03/28/25 05:41 03/28/25 05:41 Labs: Laboratory Results - last 24 hr 03/28/25 05:41 WBC 5.0 RBC 3.19 L Hgb 10.6 L Hct 32.0 L MCV 100 MCH 33.2 MCHC 33.1 RDW Std Deviation 45.8 Plt Count 231 Neut % (Auto) 31 L Lymph % (Auto) 54 H Clarke % (Auto) 9 Eos % (Auto) 5 Baso % (Auto) 0 Neut # (Auto) 1.5 L Lymph # (Auto) 2.7 Clarke # (Auto) 0.5 Eos # (Auto) 0.3 Baso # (Auto) 0.0 Immature Gran # (Auto) 0.01 H Absolute Nucleated RBC 0.00 Immature Gran % 0 Nucleated RBC % 0 Sodium 142 Potassium 4.0 Chloride 107 Carbon Dioxide 25.0 Anion Gap 10 BUN 14 Creatinine 0.7 Estim Creat Clear Calc 36.4 L eGFR > 60 BUN/Creatinine Ratio 20 Glucose 90 Calculated Osmolality 283 Calcium 8.9 Corrected Calcium 9.7 Total Bilirubin < 0.2 L AST 22 ALT 21 Alkaline Phosphatase 50 Total Protein 4.9 L Albumin 3.0 L D Globulin 1.9 L Albumin/Globulin Ratio 1.6 ABG Interpretation ABG results: 03/23/25 14:41 ABG pH 7.43 ABG pCO2 33 ABG pO2 98 ABG HCO3 22 ABG O2 Saturation 99 H ABG Base Excess -2 Quality Measures Quality Measures VTE prophylaxis (Heparin sc) Advance care planning discussed with:: other Assessment & Plan Assessment Current Active Medications: Generic Name Dose Route Start Last Admin Trade Name Freq PRN Reason Stop Dose Admin Acetaminophen 650 mg 03/23/25 20:55 Acetaminophen 325 Mg Tablet PO 04/22/25 20:54 Q6H PRN PAIN SCALE 1-3 (mild Acetaminophen 650 mg 03/23/25 20:55 Acetaminophen 325 Mg Tablet PO 04/22/25 20:54 Q6H PRN Fever >100.4 Hydrocodone Bitart/Acetaminophen 1 tab 03/23/25 20:55 03/23/25 23:03 Hydrocodone/Apap 10/325 Tab PO 03/28/25 20:54 1 tab Q4HR PRN Administration PAIN SCALE 7-10 (Severe Albuterol/Ipratropium 3 ml 03/23/25 20:55 Albuterol/Ipratropium (Duoneb) Rt Pearl 3 Ml Nebu INH 04/22/25 20:54 Q6HRRT PRN Wheezing Amlodipine Besylate 10 mg 03/24/25 09:00 03/28/25 09:13 Amlodipine Besylate 5 Mg Tablet PO 04/23/25 08:59 10 mg QDAY BRENDA Administration Heparin Sodium (Porcine) 5,000 unit 03/23/25 21:00 03/28/25 09:17 Heparin Sod Inj 5000 Unit/Ml Vial SC 04/06/25 20:59 5,000 unit BID BRENDA Administration Ceftriaxone Sodium/Dextrose 1 gm in 50 mls @ 100 mls/hr 03/24/25 09:00 03/28/25 09:18 Rocephin/D5w 1gm Iv Premix IV 03/31/25 08:59 100 mls/hr QDAY BRENDA Administration Azithromycin 250 mg/ Sodium 250 mls @ 250 mls/hr 03/25/25 09:00 03/28/25 09:19 Chloride IV 04/01/25 08:59 250 mls/hr QDAY BRENDA Administration Lisinopril 20 mg 03/26/25 10:00 03/28/25 09:15 Lisinopril 20 Mg Tablet PO 04/25/25 09:59 20 mg QDAY BRENDA Administration Multivitamins 1 tab 03/24/25 09:00 03/28/25 09:15 Multivitamins Tablet PO 04/23/25 08:59 1 tab QDAY BRENDA Administration Ondansetron HCl 4 mg 03/23/25 20:55 Ondansetron Inj 2 Mg/Ml Inj 2 Ml IVP 04/22/25 20:54 Q6H PRN NAUSEA OR VOMITING Protocol Oxycodone/Acetaminophen 1 tab 03/23/25 20:55 Oxycodone/Apap 5/325 Tablet PO 03/28/25 20:54 Q6H PRN PAIN SCALE 4-6 (Moderate Pantoprazole Sodium 40 mg 03/23/25 21:00 03/28/25 09:16 Pantoprazole Inj 40 Mg Vial IVP 04/22/25 20:59 40 mg QDAY BRENDA Administration Quetiapine Fumarate 25 mg 03/27/25 21:00 03/27/25 20:11 Quetiapine Fumarate 25 Mg Tablet PO 04/26/25 20:59 25 mg HS BRENDA Administration Thiamine HCl 100 mg 03/24/25 09:00 03/28/25 09:15 Thiamine 100 Mg Tablet PO 04/23/25 08:59 100 mg QDAY BRENDA Administration Thyroid 60 mg 03/24/25 09:00 03/28/25 09:12 Thyroid 30 Mg Tablet PO 04/23/25 08:59 60 mg QDAY BRENDA Administration Plan This patient is a 84-year-old female with past medical history of hypothyroidism, hypertension, chronic back pain presented to the ED with altered mental status admitted for acute encephalopathy workup. #Acute encephalopathy likely multifactorial, resolved #Hospital-acquired delirium versus dementia? #Community-acquired pneumonia #E. coli UTI Patient presented with acute mental status change on 03/23/25. No focal neurological deficit was seen on examination. Head CT showed no acute change. Symptoms were attributed to infection given leukocytosis and pneumonia as well as UTI based on UA. Patient is currently afebrile saturating well on room air. Mental status was deteriorating at night on 03/25. Urine culture grew E. coli pansensitive Plan: EEG was normal, safe for discharge from neurology standpoint Cont with seroquel 25 mg HS due to patients advance dementia Continue Rocephin and azithromycin Off restraints Frequent reorientation with delirium precautions Hold off patient's home diazepam due to confusion Right full-thickness rotator cuff tear - Continue right arm sling with pain control and HH PT #Chronic caloric malnutrition #Underweight BMI 14 #History of COPD #History of hypothyroidism #History of hypertension #Incidental liver lesion #Incidental pulmonary nodule Rest of the management as per primary care team. Plan of care discussed with neurologist, Dr Awilda Guo MD, PGY 3
--- NOTE | 2025-03-28 17:35 | ESDS_ITS ---
<Statement entered by Loida Cisse MD - 03/29/25 07:05> Note reviewed, I agree with most of its contents and agree with the patient's care as documented by Dr. Puentes. The patient's management plan was discussed with my attending physician Dr. Conway. Loida Cisse, PGY-2 Planned Discharge Date 03/28/25 DS: Providers Provider Date of admission: 03/24/25 10:03 Primary care physician: Jenni Gallardo MD Admitting Provider: Cesar Tucker MD Attending Provider on Admission: Asa Boone MD Consults: 03/23/25 20:55 Referral Physical Therapy Stat Comment: Physician Instructions: 03/23/25 22:17 Referral Physical Therapy Routine Comment: Physician Instructions: 03/24/25 04:51 Referral Registered Dietitian Routine Comment: Malnutrition 03/26/25 11:47 Consult to Neurology / Tele-Neurology Routine Comment: Consulting Provider: Milad Kaiser Attending Provider on DC: Tano Conway DO Discharging Provider: Tano Conway DO DS: Diagnosis Problem List Completed Was Problem List Reviewed/Reconciled?: Yes Hospital Course Hospital Course Hospital course: Milagros Elmore 84 yr female PMH of hypothyroidism, HTN, COPD, chronic back pain, presenting to the ED on 03/23/25 due to altered mental status. she resides with her son who is a bedside during encounter. On the morning of admission, she was found lying in bed, with her legs extended on wheelchair. Granddaughter noted that she was slightly confused, difficult to arouse, and not making sense when he she asked questions. Per son, she had been losing weight gradually over the last several weeks, more than 4 lbs, although there is no reported loss of appetite. Additionally, she complained of right arm pain, unable to lift her arm secondary to pain which is also chronic. Neurology Dr. Kaiser was consulted for recs. All workup including MRI head, was negative. She was found to have a UTI with pansensitive E. coli and community acquired pneumonia. She was treated with both and her mentation began to improve. However her hospital course was complicated by nightly agitation requiring soft wrist restraints to prevent the patient from pulling out her IV or falling out of bed. Neurology was consulted and this was deemed an advancement of the patient's dimentia, given her negative neurological studies and her improved UTI/CAP. She was started on 25 mg quetiapine nightly on 03/27, delirium improved and she no longer needed the wrist restraints at night. Patient was stable, felt ready to go home with family, and she was subsequently discharged in stable condition. Discharge instructions: Please take your home medications as prescribed. Please start taking your new medication: Seroquel 25mg at night Please see your PCP and neurology in 1 week. Please return to the ED if your symptoms worsen. Hospital diagnoses: #Acute encephalopathy likely multifactorial,resolving #Hospital-acquired delirium versus dementia? #Community-acquired pneumonia #E. coli UTI Right full-thickness rotator cuff tear #Chronic caloric malnutrition #Underweight BMI 14 #History of COPD #History of hypothyroidism #History of hypertension #Incidental liver lesion #Incidental pulmonary nodule Case was discussed with attending phsyican Dr. Conway. Will [place] resident Time Spent with Patient Time attestation: Total time spent providing and/or coordinating discharge services: Time spent: Greater than 30 minutes Home Health Home Health Referral Orders: 03/28/25 12:41 Home Health Referral Routine Reason For Exam: debility Home-Bound The patient must either because of illness or injury, need the aid of supportive devices such as crutches, canes, wheelchairs, and walkers; the use of special transpo rtation; or the assistance of another person in order to leave their place of residence; OR have a condition such that leaving his or her home is medically contraindicated. In addition, the patient also meets the following criteria: patient is normally unable to leave the home and leaving home requires considerable taxing effort. Addendum to Home Health Certification Practitioner's Certification: I certify that the patient has been under my care in the hospital and the care of attending physician (see below). We had a [id number] encounter on (see date below). My clinical findings indicate that the patient is home bound per the above criteria and the Home Health Services noted in these orders are medically necessary. The primary reason for the [id number] encounter is related to the fact that the patient requires home health services. Date Certifying [id number] Physician Encounter: 03/24/25 Physician's Name who will Assume Oversight for Services: Jenni Gallardo Physician's Phone No.who will Assume Oversight for Service: STERILIZATION TECHNICIAN - Community Resources: No PT to Evaluate: Yes PT to evaluate and provide a treatmnet plan to increase patient's mobility and strength. Wound Care: No IV Therapy: No Discontinue PICC Line Once Treatment Complete: No RN Safety Evaluation: Yes RN to evaluate and create a plan of care that will produce positive outcomes. Palliative Treatment: No Palliative treatment and evaluate the need for hospice. Home Health Aide - Personal Care: No Home Health Aide to assist with any ADL's. Exam Vital Signs Temp Pulse Resp BP Pulse Ox O2 Del Method O2 Flow Rate 97.6 F 76 18 124/71 98 Room Air 2 03/28/25 15:20 03/28/25 15:20 03/28/25 15:20 03/28/25 15:20 03/28/25 15:20 03/28/25 15:20 03/25/25 00:00 Narrative Exam GENERAL APPEARANCE: AxOx4, frail and cachectic in no acute distress. HEENT: NC, AT. MMM. EOMI, clear conjunctiva, oropharynx clear. NECK: Supple without lymphadenopathy. No stiffness or restricted ROM. HEART: Normal rate and regular rhythm, normal S1/S2, no m/r/g LUNGS: CTAB, moving air well. No crackles or wheezes are heard. ABDOMEN: Soft, nontender, nondistended with good bowel sounds heard. BACK: No CVAT, no obvious deformity. EXTREMITIES: Without cyanosis, clubbing or edema. NEUROLOGICAL: Grossly nonfocal. Alert and oriented, moving all 4 extremities. CN not formally tested but appear grossly intact. Observed to ambulate with normal gait. Skin: Warm and dry without any rash. Psych: Appropriate mood and affect Discharge Plan Plan Patient Disposition: HOME (Self Care) Patient condition on transfer: Stable Prescriptions/Referrals Prescriptions/Med Rec: New quetiapine 25 mg tablet 25 mg PO HS Qty: 30 0RF Continued lisinopril 20 MG tablet 20 mg PO QDAY Qty: 30 0RF diazepam 10 mg tablet 10 mg PO QDAY hydrocodone-acetaminophen 10-325 mg tablet 1 tab PO TID PRN (Reason: back pain) thyroid (pork) [Powell Thyroid] 60 mg tablet 60 mg PO QDAY Patient Comments: TAKE 1 TABLET BY MOUTH ON EMPTY STOMACH ONCE EVERY DAY amlodipine 10 mg tablet 10 mg PO QDAY Patient Comments: TAKE 1 TABLET BY MOUTH EVERY DAY Premarin 0.625 mg tablet 0.625 mg PO QDAY Patient Comments: TAKE 1 TABLET BY MOUTH EVERY DAY FOR 90 DAYS Referrals: Jenni Gallardo MD [Primary Care Provider, Family Practice] Patient/Caregiver Discharge Instructions Other Discharge Diet Instructions: Please take your home medications as prescribed. Please start taking your new medication: Seroquel 25mg at night Please see your PCP and neurology in 1 week. Please return to the ED if your symptoms worsen. Education Materials: Dementia Caregiver Tips, ED Confusion Print Language: Swedish Stand Alone Forms: Radha Award Info., Patient Portal Info Letter Discharge Order Discharge Orders: Discharge (Routine); Ordered 03/28/25 Ordered By: Kaleigh Kaiser Quality Discharge Quality Measures none (Patient discharged home, can ambulate with assistance. ) MD Attestestation MD Attestation I have discussed and was present for the essential components of the discharge history, physical examination, diagnosis, and discharge treatment plan with the resident. I agree with the patient's discharge care as documented by the resident and amended herein by me. Chung Conway, . The patient/family understood all discharge instructions, all questions were answered satisfactorily. The patient/family was instructed to return to the Emergency Department is symptoms worsened or persisted. Stable, afebrile and tolerating p.o. intake at time of discharge Although this document has been carefully reviewed, there may still be some phonetic and other typographical errors. These errors are purely grammatical due to imperfections in the software program and should not be construed in any way to compromise the substance of the patient's medical care during this visit.
--- NOTE | 2025-03-30 08:49 | PC.CC ---
Addendum entered by Kaelyn Moses RN 03/30/25 09:08: [facility] accepted and booked, SOC 03/31 Original Note: HH ref sent out, waiting for response
== END 2025-03-28 18:45 | disposition home or self-care (01) | DRG 193 ==
LOC: SERX 19:39 → SERHOLD 21:16 → S3NX 21:56 → S3SX 03-26 19:49
PROVIDERS: Family Medicine; Admitting Provider Student in an Organized Health Care Education/Training Program; Emergency Provider Emergency Medicine; PCP Family Medicine; Visit Provider Student in an Organized Health Care Education/Training Program
DX: J18.9 Pneumonia, unspecified organism (principal); E43 Unspecified severe protein-calorie malnutrition; G92.8 Other toxic encephalopathy; N39.0 Urinary tract infection, site not specified; J44.0 Chronic obstructive pulmonary disease with (acute) lower respiratory infection; R64 Cachexia; Z68.1 Body mass index [BMI] 19.9 or less, adult; F05 Delirium due to known physiological condition; M51.360 Other intervertebral disc degeneration, lumbar region with discogenic back pain only; G89.29 Other chronic pain; E03.9 Hypothyroidism, unspecified; I10 Essential (primary) hypertension; F17.210 Nicotine dependence, cigarettes, uncomplicated; K57.30 Diverticulosis of large intestine without perforation or abscess without bleeding; R16.0 Hepatomegaly, not elsewhere classified; B96.20 Unspecified Escherichia coli [E. coli] as the cause of diseases classified elsewhere; K76.9 Liver disease, unspecified; R91.1 Solitary pulmonary nodule; M75.121 Complete rotator cuff tear or rupture of right shoulder, not specified as traumatic; M85.80 Other specified disorders of bone density and structure, unspecified site; R62.7 Adult failure to thrive; M62.838 Other muscle spasm; F03.90 Unspecified dementia, unspecified severity, without behavioral disturbance, psychotic disturbance, mood disturbance, and anxiety; Z78.1 Physical restraint status; Z66 Do not resuscitate; Z88.6 Allergy status to analgesic agent; F03.A0 Unspecified dementia, mild, without behavioral disturbance, psychotic disturbance, mood disturbance, and anxiety
CPT/HCPCS: 36415; 36600; 70450; 71045; 71250; 73020; 74177; 80053; 80307; 80320; 80329; 81001; 82140; 82803; 83605; 83735; 84100; 84439; 84443; 84481; 84484; 85025; 85610; 87040; 87077; 87086; 87186; 87400; 87811; 93005; 95816; 96361; 96365; 96366; 96372; 96375; 97162; 99285; A4649; G0378; J0456; J0696; J1644; J2470; J3475; J7030; J7050; J7120; J7999; Q9967; A9270; G0480